=== PATIENT | male | born 1950 | race Caucasian/White ===

== ENCOUNTER 2019-06-04 10:45 | Inpatient (IN) | payer MEDICARE, OTHER ==
[2019-06-04] MEDS ORDERED: Nitroglycerin 2% Ointment 1 INCH/1 GM Packet ONE (11:19)
[2019-06-04 11:29] LABS: #Basophils 0.1 thou/uL (0.0-0.2); #Eosinphils 0.1 thou/uL (0.0-0.7); #Monocytes 0.5 thou/uL (0.11-0.59); #Neutrophils 6.7 thou/uL (1.40-6.50); %Basophils 0.8 % (0.0-1.0); %Eosinophils 0.6 % (0.0-10.0); %Monocytes 5.6 % (0.0-10.0); Hemoglobin 15.4 g/dL (14.0-18.0); Mean Corpuscular HGB CONC 33.5 g/dL (32.0-36.0); Mean Corpuscular Hemoglobin 30.6 pg (27.0-31.0); Mean Corpuscular Volume 91.4 fL (78.0-98.0); Mean Platelet Volume 11.1 fL (7.4-10.4); Platelet Count 155 thou/uL (130-400); RBC Distribution Width 12.2 % (11.5-14.5); Red Blood Cell (RBC) Count 5.02 mill/uL (4.70-6.10); White Blood Cell (WBC) Count 9.3 thou/uL (4.8-10.8)
--- NOTE | 2019-06-04 11:47 | RAD ---
XR Chest 1 View Portable HISTORY: Shortness of breath COMPARISON: None FINDINGS: There are changes of median sternotomy. The heart size is mildly enlarged.. The lungs are w ell expanded without focal areas of consolidation, pneumothorax or pleural effusions. IMPRESSION: No radiographic evidence of acute cardiopulmonary process.
[2019-06-04 11:55] LABS: ALT (SGPT) 36 U/L (8-55); AST (SGOT) 24 U/L (5-34); Albumin 4.2 g/dL (3.4-4.8); Alkaline Phosphatase 52 U/L (40-110); Anion Gap 10 mmol/L (10-20); BUN (Urea Nitrogen) 18 mg/dL (8.4-25.7); Bilirubin, Total 0.8 mg/dL (0.2-1.2); Calc. Creatinine Clearance 0 mL/min (70-130); Calcium 9.3 mg/dL (7.8-10.44); Carbon Dioxide 30 mmol/L (23-31); Chloride 104 mmol/L (98-107); Estimated GFR-MDRD 71; Globulin 2.7 g/dL (2.4-3.5); Glucose 146 mg/dL (80-115); Potassium 4.4 mmol/L (3.5-5.1); Protein, Total 6.9 g/dL (5.8-8.1); Sodium 140 mmol/L (136-145)
[2019-06-04 12:13] LABS: CKMB 3.2 ng/mL (0-6.6)
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
[2019-06-04 14:59] LABS: Troponin I 0.068 ng/mL (< 0.028)
[2019-06-04] MEDS ORDERED: Ondansetron ODT 4 MG TAB PO PRN (15:31)
[2019-06-04] MEDS ORDERED: Acetaminophen 325 MG TAB PO PRN (15:31)
--- NOTE | 2019-06-04 15:49 | CT ---
CT Brain WO Con: 06/04/2019 2:32 PM CLINICAL HISTORY: Hypertension and blurry vision. IMAGING TECHNIQUE: Multiple CT images were obtained of the brain without IV contrast. COMPARISON: None. FINDINGS: Brain: No acute infarct or hemorrhage is evident. No midline shift. Ventricles: Normal. No hydrocephalus.. Skull: No acute fracture. 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 Visualized Paranasal sinuses: Clear.. Mastoid air cells:Clear. Extracranial soft tissues:Normal. IMPRESSION: No acute intracranial abnormality.
[2019-06-04 15:51] VITALS: BMI 33.9
[2019-06-04 15:56] LABS: Cardiac Risk 4.9 (Less than 4.5)
[2019-06-04] MEDS ORDERED: Amlodipine 10 MG TAB PO SCH (17:00)
[2019-06-04] MEDS ORDERED: Hydrochlorothiazide 25 MG TAB PO SCH (17:00)
--- NOTE | 2019-06-04 17:20 | CON ---
DATE OF CONSULTATION: REASON FOR CONSULTATION: Hypertensive urgency. HISTORY OF PRESENT ILLNESS: Mr. Friend is a 68-year-old gentleman who initially saw Dr. Jose Armando Anders 10 years ago. He underwent a 4-vessel bypass at [place] [facility]. He has not been seen by Cardiology since. He does follow up with primary care services manager at [facility] on a routine basis, but states he has not been seen by care services manager. He states over the last month, he stopped all his medications. Reason for stopping his medications was "wasn't smart." No chest pain, pressure noted. He does have a left bundle-branch block that appears to be a new finding, although his last EKG at [place] was in 2007. His main complaint was shortness of breath. No chest pain or pressure noted. His initial blood pressure was 213/113. He denies nausea, vomiting, or associated symptoms. He is currently resting comfortably with much less shortness of breath after blood pressure is diminished. Please see Dr. Negrete's full consultation for details. PHYSICAL EXAMINATION: GENERAL: Patient is a pleasant male who is in no acute distress. The patient appears their stated age. VITAL SIGNS: Blood pressure 191/92, pulse 61, temperature 98.4. NEUROLOGIC: The patient is alert and oriented x3 with no focal neurologic deficits. HEENT: Sclerae without icterus. Mouth has moist mucous membranes with normal pallor. NECK: No JVD. Carotid upstroke brisk. No bruits bilaterally. LUNGS: Clear to auscultation with unlabored respirations. BACK: No scoliosis or kyphosis. CARDIAC: Regular rate and rhythm with normal S1 and S2. No S3 or S4 noted. No significant rubs, murmurs, thrills, or gallops noted throughout the precordium. PMI is not displaced. There is no parasternal heave. ABDOMEN: Soft, nontender, nondistended. No peritoneal signs present. No hepatosplenomegaly. No abnormal striae. EXTREMITIES: 2+ femoral and 2+ dorsalis pedis pulses. No cyanosis, clubbing, or edema. SKIN: No gross abnormalities. PERTINENT LABORATORY DATA: Hemoglobin 15.4. Creatinine 1.04, peak troponin 0.06. BNP of 616, platelet count 155. IMPRESSION: 1. Hypertensive urgency. 2. Coronary artery disease. 3. Status post bypass surgery. 4. Left bundle branch block. RECOMMENDATIONS: Mr. Friend's current symptoms likely related to hypertensive urgency. At this point, we will reinstitute lisinopril in addition to Norvasc. May also benefit from low-dose diuretics such as hydrochlorothiazide. I would recommend an echo with Doppler to assess LVEF. If his blood pressure stabilizes and LVEF is normal, we then recommend continued outpatient followup. Job ID: [id number]
[2019-06-04 17:21] LABS: Hemoglobin A1c 6.8 % (4.0-6.0)
[2019-06-04] MEDS ORDERED: hydrALAZINE 20 MG/ML VIAL SLOW IVP PRN (17:41)
[2019-06-04 17:42] LABS: Troponin I 0.041 ng/mL (< 0.028)
[2019-06-04] MEDS ORDERED: Nitroglycerin 0.4 MG TAB (25 Tab Bottle) SL PRN (18:48)
[2019-06-04] MEDS ORDERED: Nitroglycerin 2% Ointment 1 INCH/1 GM Packet TOP PRN (18:48)
[2019-06-04] MEDS: metFORMIN XR 500 MG TAB PO SCH (20:22)
[2019-06-04] MEDS: Atorvastatin Calcium 40 MG TAB PO SCH (20:22)
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
[2019-06-05 05:36] LABS: #Basophils 0.1 thou/uL (0.0-0.2); #Eosinphils 0.2 thou/uL (0.0-0.7); #Lymphocytes 2.6 thou/uL (1.20-3.40); #Monocytes 0.5 thou/uL (0.11-0.59); #Neutrophils 5.5 thou/uL (1.40-6.50); %Basophils 0.6 % (0.0-1.0); %Eosinophils 1.8 % (0.0-10.0); %Lymphocytes 29.4 % (21.0-51.0); %Monocytes 5.9 % (0.0-10.0); %Neutrophils 62.2 % (42.0-75.0); Hemoglobin 14.6 g/dL (14.0-18.0); Mean Corpuscular HGB CONC 33.6 g/dL (32.0-36.0); Mean Corpuscular Hemoglobin 30.8 pg (27.0-31.0); Mean Corpuscular Volume 91.5 fL (78.0-98.0); Mean Platelet Volume 10.8 fL (7.4-10.4); Platelet Count 137 thou/uL (130-400); RBC Distribution Width 12.1 % (11.5-14.5); Red Blood Cell (RBC) Count 4.73 mill/uL (4.70-6.10); White Blood Cell (WBC) Count 8.8 thou/uL (4.8-10.8)
[2019-06-05 05:56] LABS: Anion Gap 11 mmol/L (10-20); BUN (Urea Nitrogen) 14 mg/dL (8.4-25.7); Calc. Creatinine Clearance 123 mL/min (70-130); Calcium 9.1 mg/dL (7.8-10.44); Carbon Dioxide 28 mmol/L (23-31); Chloride 101 mmol/L (98-107); Estimated GFR-MDRD 82; Glucose 125 mg/dL (80-115); Sodium 136 mmol/L (136-145)
--- NOTE | 2019-06-05 06:42 | PDOC.FM ---
- Subjective Subjective: Pt's respiratory symptoms have improved. He is only dyspneic with ambulation. His vision changes are unchanged. He denies motor, sensory changes. - Objective Vital Signs & Weight: Vital Signs (12 hours) Temp Pulse Resp BP Pulse Ox 06/05/19 04:34 97.9 F 58 L 20 172/92 H 94 L 06/04/19 23:35 98 F 55 L 19 138/91 H 96 06/04/19 19:50 97.6 F 58 L 21 H 176/102 H 96 Weight Weight 110.359 kg I&O: 06/03/19 06/04/19 06/05/19 06:59 06:59 06:59 Intake Total 500 Balance 500 Result Diagrams: 06/05/19 04:59 06/05/19 04:59 Phys Exam - Physical Examination Constitutional: NAD HEENT: PERRLA, moist MMs Respiratory: no wheezing, no rales, clear to auscultation bilateral Cardiovascular: RRR, no significant murmur Gastrointestinal: soft, non-tender Musculoskeletal: no edema, pulses present Neurological: non-focal, normal sensation, moves all 4 limbs L eye blurry vision worse in bottom hemisphere Dx/Plan (1) LBBB (left bundle branch block) Code(s): I44.7 - LEFT BUNDLE-BRANCH BLOCK, UNSPECIFIED Status: Acute (2) Hypertensive urgency Code(s): I16.0 - HYPERTENSIVE URGENCY Status: Acute (3) HTN (hypertension) Code(s): I10 - ESSENTIAL (PRIMARY) HYPERTENSION Status: Acute (4) DM (diabetes mellitus) Code(s): E11.9 - TYPE 2 DIABETES MELLITUS WITHOUT COMPLICATIONS Status: Acute (5) Hyperlipemia Code(s): E78.5 - HYPERLIPIDEMIA, UNSPECIFIED Status: Acute - Plan Plan: Pt is a 68 yo male with PMH significant for CAD, CABG 11 yrs ago, HTN, DM II, HLD who presents with LBBB w/o a comparison EKG, new onset blurry vision of L eye. # LBBB # Hx of CAD s/p CABG LBBB on EKG. Unsure if new bc no comparison. Pt has hx of CABG w/o cardiology follow up. He stopped taking his medication 1 month ago. Pt's does not appear fluid overloaded on exam but does have dyspnea, tachypnea, +- orthopnea. With PMH pt possibly has diastolic/systolic dysfunction. BNP elevated, trop indeterminate x 2, CXR mildly enlarged heart. - restart statin therapy, HCTZ, lisinopril, amlodipine; held metoprolol for possible stress test. - Cardiology consulted; appreciate recs. Ordered echocardiogram and if changes on echo will possibly take for stress test. - trend trop x 3 # New Onset Visual Field Changes/Disturbance Pt complains of blurry vision in L eye occurring with onset of dyspnea, tachypnea. Possibly pt has suffered a CVA. Pt's MAP reduced by 20% with nitro paste. Continued home meds to preserve heart function as pt's visual field deficits are not reversible at this time. - CT Head negative - MRI pending # DM MII - a1c 6.8 - continue home metformin # HLD - Elevated LDL - started statin therapy # HTN - medications as above Fluids: none Diet: Heart Healthy VTE: Lovenox Dispo: > 2 midnight stays Addendum - Attending - Attending Attestation Date/Time: 06/05/19 5992 I personally evaluated the patient and discussed the management with Dr. Zacarias. I agree with the History, Examination, Assessment and Plan documented above with any addition or exceptions noted below.
--- NOTE | 2019-06-05 08:24 | MRI ---
MRI BRAIN WITHOUT CONTRAST: HISTORY: Blurry vision, hypertension CORRELATION: CT scan from 06/04/2019. FINDINGS: No restricted diffusion is seen. The ventricular size is appropriate and the basilar cisterns are pat ent. No evidence of acute infarct, hemorrhage, midline shift or abnormal extra-axial fluid collections is seen. There is mild mucosal disease in the paranasal sinuses and small amount of fluid in the mastoid air cells. IMPRESSION: No evidence of acute intracranial process.
[2019-06-05] MEDS: Hydrochlorothiazide 25 MG TAB PO SCH (08:32)
[2019-06-05] MEDS: Lisinopril 10 MG TAB PO SCH (08:32)
[2019-06-05] MEDS: Aspirin 325 MG TAB PO SCH (08:32)
[2019-06-05] MEDS: metFORMIN XR 500 MG TAB PO SCH ×2 (08:33→20:33)
[2019-06-05] MEDS: Enoxaparin Sodium 40 MG/0.4 ML SYRINGE SC SCH (08:34)
[2019-06-05] MEDS ORDERED: Hydrochlorothiazide 25 MG TAB PO SCH ×2 (09:00)
[2019-06-05] MEDS ORDERED: Amlodipine 5 MG TAB PO SCH (09:00)
[2019-06-05] MEDS ORDERED: Prevnar 13-Val Conj/PF 0.5 ML SYRINGE IM ONE (09:00)
--- NOTE | 2019-06-05 09:13 | PRG ---
DATE OF SERVICE: 06/05/2019 SUBJECTIVE: Mr. Friend is doing better. His blood pressure improved overnight, but then increased this morning. No current complaints of chest pain, pressure, or other associated symptoms. OBJECTIVE: GENERAL: The patient is a pleasant male, who is in no acute distress. The patient appears their stated age. VITAL SIGNS: Blood pressure 183/98, pulse 64, and respirations 20. NEUROLOGIC: The patient is alert and oriented x3 with no focal neurologic deficits. HEENT: Sclerae without icterus. Mouth has moist mucous membranes with normal pallor. NECK: No JVD. Carotid upstroke brisk. No bruits bilaterally. LUNGS: Clear to auscultation with unlabored respirations. BACK: No scoliosis or kyphosis. CARDIAC: Regular rate and rhythm with normal S1 and S2. No S3 or S4 noted. No significant rubs, murmurs, thrills, or gallops noted throughout the precordium. PMI is not displaced. There is no parasternal heave. ABDOMEN: Soft, nontender, nondistended. No peritoneal signs present. No hepatosplenomegaly. No abnormal striae. EXTREMITIES: 2+ femoral and 2+ dorsalis pedis pulses. No cyanosis, clubbing, or edema. SKIN: No gross abnormalities. PERTINENT LABORATORY DATA: Hemoglobin 14.6. Peak troponin 0.068. BNP of 616. Creatinine 0.92. IMPRESSION: 1. Hypertensive urgency. 2. Coronary artery disease. 3. Status post bypass surgery. RECOMMENDATIONS: 1. Elevated troponin likely related to hypertensive urgency. The patient has no current symptoms of angina. 2. Change hydrochlorothiazide from b.i.d. dosing to q.a.m. dosing. 3. Increase Norvasc to 5 mg p.o. b.i.d. 4. Review echo. 5. When blood pressure is stable, it would be okay from my standpoint to discharge home with close outpatient followup. Job ID: [id number]
[2019-06-05] MEDS: Amlodipine 5 MG TAB PO SCH ×2 (09:35→20:32)
[2019-06-05] MEDS ORDERED: hydrALAZINE 20 MG/ML VIAL SLOW IVP PRN (14:25)
[2019-06-05] MEDS: Carvedilol 3.125 MG TAB PO SCH (18:23)
[2019-06-05] MEDS: Atorvastatin Calcium 40 MG TAB PO SCH (20:33)
[2019-06-06 07:11] LABS: Anion Gap 10 mmol/L (10-20); BUN (Urea Nitrogen) 19 mg/dL (8.4-25.7); Calc. Creatinine Clearance 107 mL/min (70-130); Calcium 9.6 mg/dL (7.8-10.44); Carbon Dioxide 32 mmol/L (23-31); Chloride 102 mmol/L (98-107); Estimated GFR-MDRD 70; Glucose 132 mg/dL (80-115); Potassium 4.2 mmol/L (3.5-5.1); Sodium 140 mmol/L (136-145)
--- NOTE | 2019-06-06 07:55 | PDOC.FM ---
- Subjective Subjective: Pt is doing well w/o complaints. He was seen by cardiology who recommended a stress test today. PO intake held. Symptoms are resolving. - Objective Vital Signs & Weight: Vital Signs (12 hours) Temp Pulse Resp BP BP Pulse Ox 06/06/19 04:40 97.6 F 54 L 18 167/86 H 95 06/05/19 23:55 97.9 F 52 L 16 139/78 96 06/05/19 20:32 55 L 149/78 H 06/05/19 20:09 98.0 F 55 L 16 149/78 H 93 L Weight Weight 110.359 kg I&O: 06/05/19 06/06/19 06/07/19 06:59 06:59 06:59 Intake Total 500 960 Balance 500 960 Result Diagrams: 06/05/19 04:59 06/06/19 06:09 Phys Exam - Physical Examination Constitutional: NAD HEENT: PERRLA, moist MMs Respiratory: no wheezing, clear to auscultation bilateral Cardiovascular: RRR, no significant murmur Gastrointestinal: soft, non-tender Musculoskeletal: no edema, pulses present Psychiatric: normal affect, A&O x 3 Dx/Plan (1) LBBB (left bundle branch block) Code(s): I44.7 - LEFT BUNDLE-BRANCH BLOCK, UNSPECIFIED Status: Acute (2) Hypertensive urgency Code(s): I16.0 - HYPERTENSIVE URGENCY Status: Acute (3) HTN (hypertension) Code(s): I10 - ESSENTIAL (PRIMARY) HYPERTENSION Status: Acute (4) DM (diabetes mellitus) Code(s): E11.9 - TYPE 2 DIABETES MELLITUS WITHOUT COMPLICATIONS Status: Acute (5) Hyperlipemia Code(s): E78.5 - HYPERLIPIDEMIA, UNSPECIFIED Status: Acute - Plan Plan: Pt is a 68 yo male with PMH significant for CAD, CABG 11 yrs ago, HTN, DM II, HLD who presents with LBBB w/o a comparison EKG, new onset blurry vision of L eye. # LBBB # Hx of CAD s/p CABG LBBB on EKG. Unsure if new bc no comparison. Pt has hx of CABG w/o cardiology follow up. He stopped taking his medication 1 month ago. Pt's does not appear fluid overloaded on exam but does have dyspnea, tachypnea, +- orthopnea. With PMH pt possibly has diastolic/systolic dysfunction. BNP elevated, trop indeterminate x 2, CXR mildly enlarged heart. - restart statin therapy, HCTZ, lisinopril, amlodipine; held metoprolol for possible stress test. Cardiology started on carvedilol yesterday. Held this am for stress test. - Cardiology consulted; appreciate recs. Stress test today. - Echo revealed EF 40-45%, Hypokinetic - trend trop x 3 # New Onset Visual Field Changes/Disturbance Pt complains of blurry vision in L eye occurring with onset of dyspnea, tachypnea. Possibly pt has suffered a CVA. Pt's MAP reduced by 20% with nitro paste. Continued home meds to preserve heart function as pt's visual field deficits are not reversible at this time. - CT Head negative - MRI negative # DM MII - a1c 6.8 - continue home metformin # HLD - Elevated LDL - started statin therapy # HTN - medications as above - will need to titrate for optimal control. Addition of carvedilol will hopefully give optimal BP. If not can increase lisinopril, HCTZ Fluids: none Diet: Heart Healthy VTE: Lovenox Dispo: > 2 midnight stays Addendum - Attending - Attending Attestation Date/Time: 06/06/19 1416 I personally evaluated the patient and discussed the management with Dr. Zacarias /Mickey I agree with the History, Examination, Assessment and Plan documented above with any addition or exceptions noted below. Stress today worthwhile US scan orbits/retinal due persistent visual changes r/u retinal detachment
[2019-06-06] MEDS: Amlodipine 5 MG TAB PO SCH ×2 (12:44→21:38)
[2019-06-06] MEDS: Aspirin 325 MG TAB PO SCH (12:45)
[2019-06-06] MEDS: Enoxaparin Sodium 40 MG/0.4 ML SYRINGE SC SCH (12:45)
[2019-06-06] MEDS: Lisinopril 10 MG TAB PO SCH ×2 (12:45→21:37)
[2019-06-06] MEDS: metFORMIN XR 500 MG TAB PO SCH ×2 (12:45→21:37)
[2019-06-06] MEDS: Hydrochlorothiazide 25 MG TAB PO SCH (12:45)
[2019-06-06] MEDS ORDERED: Regadenoson 0.4 MG/5 ML SYRINGE ONE (12:47)
--- NOTE | 2019-06-06 13:39 | NM ---
NM Cardiac Stress W EF WF HISTORY: Chest pain shortness of breath. COMPARISON: None. FINDINGS: Examination is performed using 33 mCi 90 9M technetium sestamibi for the stress and 10 mCi for the resting images. This shows a dilated ventricular chamber. No signs of ischemia or scar. Wall motion: There is a severe global hypokinesis present. Left ventricular ejection fraction: The calculated left ventricular ejection fraction was 31%. IMPRESSION: No evidence of ischemia. Diminished left ventricular ejection fraction of 31%.
--- NOTE | 2019-06-06 15:34 | PRG ---
DATE OF SERVICE: 06/06/2019 SUBJECTIVE: Mr. Friend is doing well. No chest pain or pressure. OBJECTIVE: VITAL SIGNS: Blood pressure still high at 180/100, pulse 58, but sometimes he is in low 50s. LUNGS: Clear. CARDIAC: Normal S1. Normal S2. ABDOMEN: Soft and nontender. IMAGING STUDIES: On the monitor, he has Tachycardia-bradycardia syndrome with heart rates in the 40s at times. Other times, he is having SVT. EKG reveals left bundle-branch block. Stress test indicated ejection fraction of 31%. On the echo, it looked in the 40% to 45% range. ASSESSMENT: 1. Previous bypass surgery. 2. Depressed left ventricular function. 3. Left bundle-branch block. 4. Tachycardia-bradycardia syndrome. 5. Hypertension. PLAN: 1. Increase MUMTAZ inhibitors. 2. Can go higher in the beta blockers at least for now. 3. Consideration for cardiac catheterization to evaluate the ejection fraction with left ventriculogram. If the ejection fraction is below 35%, may need a LifeVest with over 35%, could even consider biventricular pacing followed by increased beta blockers. Dr. Ryan to resume care on Saturday. Job ID: [id number]
[2019-06-06] MEDS: Atorvastatin Calcium 40 MG TAB PO SCH (21:37)
--- NOTE | 2019-06-07 06:13 | PDOC.FM ---
- Subjective Subjective: Pt is doing well. He has no symptoms today. Denies dyspnea at rest/ambulation, chest pain. - Objective Vital Signs & Weight: Vital Signs (12 hours) Temp Pulse Resp BP Pulse Ox 06/07/19 04:40 97.8 F 54 L 20 155/85 H 95 06/07/19 01:30 97.8 F 54 L 20 155/85 H 95 06/07/19 00:05 97.8 F 56 L 20 165/86 H 97 06/06/19 21:38 49 L 176/90 H 06/06/19 21:37 176/90 H Weight Weight 110.359 kg I&O: 06/05/19 06/06/19 06/07/19 06:59 06:59 06:59 Intake Total 500 960 960 Output Total 450 Balance 500 960 510 Result Diagrams: 06/05/19 04:59 06/06/19 06:09 Phys Exam - Physical Examination Constitutional: NAD Respiratory: no wheezing, clear to auscultation bilateral Cardiovascular: RRR, no significant murmur Gastrointestinal: soft, non-tender Musculoskeletal: no edema Dx/Plan (1) LBBB (left bundle branch block) Code(s): I44.7 - LEFT BUNDLE-BRANCH BLOCK, UNSPECIFIED Status: Acute (2) Hypertensive urgency Code(s): I16.0 - HYPERTENSIVE URGENCY Status: Acute (3) HTN (hypertension) Code(s): I10 - ESSENTIAL (PRIMARY) HYPERTENSION Status: Acute (4) DM (diabetes mellitus) Code(s): E11.9 - TYPE 2 DIABETES MELLITUS WITHOUT COMPLICATIONS Status: Acute (5) Hyperlipemia Code(s): E78.5 - HYPERLIPIDEMIA, UNSPECIFIED Status: Acute - Plan Plan: Pt is a 68 yo male with PMH significant for CAD, CABG 11 yrs ago, HTN, DM II, HLD who presents with LBBB w/o a comparison EKG, new onset blurry vision of L eye. # LBBB # Hx of CAD s/p CABG LBBB on EKG. Unsure if new bc no comparison. Pt has hx of CABG w/o cardiology follow up. He stopped taking his medication 1 month ago. Pt's does not appear fluid overloaded on exam but does have dyspnea, tachypnea, +- orthopnea. With PMH pt possibly has diastolic/systolic dysfunction. BNP elevated, trop indeterminate x 2, CXR mildly enlarged heart. - restart statin therapy, HCTZ, lisinopril, amlodipine; held metoprolol for possible stress test. Cardiology started on carvedilol yesterday. Held this am for stress test. - Cardiology consulted; appreciate recs. Echo revealed EF 40-45%, Hypokinetic; stress revealed EF 31%; pt will need cath for further stratification of cardiac disease. Will be performed on Saturday. Lisinopril increased to BID, Beta Juanita restarted. Increase beta juanita if BP needed, HR can tolerate. - trend trop x 3 # New Onset Visual Field Changes/Disturbance Pt complains of blurry vision in L eye occurring with onset of dyspnea, tachypnea. Possibly pt has suffered a CVA. Pt's MAP reduced by 20% with nitro paste. Continued home meds to preserve heart function as pt's visual field deficits are not reversible at this time if secondary to CVA. Defect stable. - CT Head negative - MRI negative - Follow up outpt # DM MII - a1c 6.8 - continue home metformin # HLD - Elevated LDL - started statin therapy # HTN - medications as above - will need to titrate for optimal control. Addition of carvedilol will hopefully give optimal BP. If not can increase lisinopril, HCTZ Fluids: none Diet: Heart Healthy VTE: Lovenox Dispo: > 2 midnight stays Addendum - Attending - Attending Attestation Date/Time: 06/07/19 4719 I personally evaluated the patient and discussed the management with Dr. Zacarias I agree with the History, Examination, Assessment and Plan documented above with any addition or exceptions noted below.
[2019-06-07] MEDS: Amlodipine 5 MG TAB PO SCH ×2 (09:43→20:56)
[2019-06-07] MEDS: Aspirin 325 MG TAB PO SCH (09:43)
[2019-06-07] MEDS: Enoxaparin Sodium 40 MG/0.4 ML SYRINGE SC SCH (09:43)
[2019-06-07] MEDS: Carvedilol 3.125 MG TAB PO SCH ×2 (09:43→17:52)
[2019-06-07] MEDS: Hydrochlorothiazide 25 MG TAB PO SCH (09:44)
[2019-06-07] MEDS: Lisinopril 10 MG TAB PO SCH ×2 (09:44→20:56)
[2019-06-07] MEDS: metFORMIN XR 500 MG TAB PO SCH ×2 (09:44→20:57)
[2019-06-07] MEDS ORDERED: Artificial Tear Sol 15 ML BOT EA EYE PRN (13:19)
[2019-06-07] MEDS: Atorvastatin Calcium 40 MG TAB PO SCH (20:56)
[2019-06-08 05:32] LABS: Anion Gap 12 mmol/L (10-20); BUN (Urea Nitrogen) 19 mg/dL (8.4-25.7); Calc. Creatinine Clearance 108 mL/min (70-130); Calcium 9.7 mg/dL (7.8-10.44); Carbon Dioxide 29 mmol/L (23-31); Cardiac Risk 4.6 (Less than 4.5); Chloride 100 mmol/L (98-107); Cholesterol 144 mg/dl (< 200 Desired); Estimated GFR-MDRD 71; Glucose 128 mg/dL (80-115); HDL Cholesterol 31 mg/dL (>60 Neg Risk); LDL Cholesterol, Calculated 98 mg/dL; Potassium 3.9 mmol/L (3.5-5.1); Sodium 137 mmol/L (136-145); Triglycerides 74 mg/dL (Less than 150)
--- NOTE | 2019-06-08 06:06 | PDOC.FM ---
- Subjective Subjective: Pt is doing well today. He denies dyspnea at rest or ambulation, chest pain. He vision has no changed. Seen by optho but no is not in system. - Objective Vital Signs & Weight: Vital Signs (12 hours) Temp Pulse Resp BP Pulse Ox 06/08/19 04:00 97.4 F L 62 16 158/79 H 98 06/08/19 00:00 97.6 F 50 L 16 152/82 H 95 06/07/19 20:00 97.7 F 54 L 16 146/83 H 95 Weight Weight 110.359 kg I&O: 06/06/19 06/07/19 06/08/19 06:59 06:59 06:59 Intake Total 687 916 8585 Output Total 450 900 Balance 960 510 470 Result Diagrams: 06/05/19 04:59 06/08/19 04:48 Phys Exam - Physical Examination Constitutional: NAD Respiratory: no wheezing, clear to auscultation bilateral Cardiovascular: RRR, no significant murmur Gastrointestinal: soft, non-tender Musculoskeletal: no edema, pulses present Psychiatric: normal affect, A&O x 3 Dx/Plan (1) LBBB (left bundle branch block) Code(s): I44.7 - LEFT BUNDLE-BRANCH BLOCK, UNSPECIFIED Status: Acute (2) Hypertensive urgency Code(s): I16.0 - HYPERTENSIVE URGENCY Status: Acute (3) HTN (hypertension) Code(s): I10 - ESSENTIAL (PRIMARY) HYPERTENSION Status: Acute (4) DM (diabetes mellitus) Code(s): E11.9 - TYPE 2 DIABETES MELLITUS WITHOUT COMPLICATIONS Status: Acute (5) Hyperlipemia Code(s): E78.5 - HYPERLIPIDEMIA, UNSPECIFIED Status: Acute (6) Coronary artery disease Code(s): I25.10 - ATHSCL HEART DISEASE OF [place] CORONARY ARTERY W/O ANG PCTRS Status: Acute (7) Heart failure Code(s): I50.9 - HEART FAILURE, UNSPECIFIED Status: Acute - Plan Plan: Pt is a 68 yo male with PMH significant for CAD, CABG 11 yrs ago, HTN, DM II, HLD who presents with LBBB w/o a comparison EKG, new onset blurry vision of L eye. Pending cath today, 06/08. # LBBB # Hx of CAD s/p CABG # Heart Failure, EF 40-45% on echo and 31% on negative stress test. # Bradycardia LBBB on EKG. Unsure if new bc no comparison. Pt has hx of CABG w/o cardiology follow up. He stopped taking his medication 1 month ago. Pt's does not appear fluid overloaded on exam but does have dyspnea, tachypnea, +- orthopnea. With PMH pt possibly has diastolic/systolic dysfunction. BNP elevated, trop indeterminate x 3, CXR mildly enlarged heart. Echo revealed EF 40-45%, Hypokinetic; stress revealed EF 31%; pt will need cath for further stratification of cardiac disease. Will be performed on Saturday. Lisinopril increased to BID, Beta Juanita restarted. - Continue statin therapy, HCTZ, lisinopril, amlodipine, carvedilol; home metoprolol stopped - Cardiology consulted; appreciate recs. # New Onset Visual Field Changes/Disturbance Pt complains of blurry vision in L eye occurring with onset of dyspnea, tachypnea. Possibly pt has suffered a CVA. Pt's MAP reduced by 20% with nitro paste. Continued home meds to preserve heart function as pt's visual field deficits are not reversible at this time if secondary to CVA. Defect stable. - CT Head negative - MRI negative - Optho consulted; appreciate recs # DM MII - a1c 6.8 - continue home metformin # HLD - Elevated LDL - started statin therapy # HTN - medications as above - will need to titrate for optimal control. Consider increase if HCTZ, Lisinopril Fluids: none Diet: Heart Healthy VTE: Lovenox Dispo: > 2 midnight stays
[2019-06-08] MEDS ORDERED: Heparin (Artline) 1,000 ML ONE (07:36)
[2019-06-08] MEDS ORDERED: Lidocaine 1% (PF) 30 ML VIAL ONE (07:36)
[2019-06-08] MEDS ORDERED: Fentanyl 100 MCG/2 ML VIAL ONE (08:10)
[2019-06-08] MEDS ORDERED: Midazolam HCl 2 mg/2 ml Vial ONE (08:10)
[2019-06-08] MEDS ORDERED: Heparin 10,000 UNITS/1 ML VIAL ONE (08:41)
--- NOTE | 2019-06-08 08:46 | PRG ---
DATE OF SERVICE: 06/08/2019 The patient did undergo a noninvasive stress study over the weekend. LVEF 31%. No ischemia present. Given his new findings of low LVEF, we decided with proceed with coronary angiography versus medical therapy. I have discussed the risks and benefits of both. We decided to proceed with coronary angiography. I discussed the procedure in full detail with Mr. Friend. The risks of the procedure were also discussed. The risks of the procedure include but are not limited to the following: , stroke, LA, need for emergency surgery, loss of limb, bleeding, and infection, as well as a reaction to the dye causing kidney failure and needing long-term dialysis. I also discussed the risks of PCI to include all of the above including coronary dissection and perforation in addition to acute stent thrombosis and restenosis. All questions about the procedure were answered. Given the above, the patient agreed to proceed with coronary angiography and possible PCI. All questions were answered. We also discussed drug coated with nondrug-coated stent placement. There were no contraindications. We will proceed if needed. Further recommendations, pending the above. Job ID: [id number]
[2019-06-08] MEDS ORDERED: Aspirin Chewable 81 MG TAB ONE (08:51)
[2019-06-08] MEDS ORDERED: Clopidogrel Bisulfate 300 MG TAB ONE (08:51)
[2019-06-08] MEDS ORDERED: Lisinopril 20 MG TAB PO SCH (09:00)
[2019-06-08] MEDS ORDERED: Heparin (Artline) 500 ML ONE (09:02)
[2019-06-08] MEDS ORDERED: Sodium Chloride 0.9% 1,000 ML IV SCH (09:15)
[2019-06-08] MEDS ORDERED: Iopamidol 370 76% 100 ML VIAL ONE (10:54)
[2019-06-08] MEDS: metFORMIN XR 500 MG TAB PO SCH (11:36)
[2019-06-08] MEDS: Hydrochlorothiazide 25 MG TAB PO SCH (14:03)
[2019-06-08] MEDS: Amlodipine 5 MG TAB PO SCH (14:03)
[2019-06-08] MEDS: Carvedilol 3.125 MG TAB PO SCH ×2 (14:03→18:13)
[2019-06-08] MEDS: Aspirin 325 MG TAB PO SCH (14:09)
--- NOTE | 2019-06-08 14:56 | PRG ---
DATE OF SERVICE: 06/08/2019 ADDENDUM: Please add this as an addendum to the note of Dr. Je Zacarias. Mr. Friend just returned from cardiac cath where a stent was placed. He is currently in the PCU and will be transferred to his regular floor bed in 1 or 2 hours. He tolerated the procedure well. Job ID: [id number]
[2019-06-08 19:33] VITALS: BP 153/94; TEMP 97.4
[2019-06-09] MEDS ORDERED: Clopidogrel Bisulfate 75 MG TAB PO SCH (09:00)
[2019-06-09] MEDS ORDERED: Aspirin Chewable 81 MG TAB PO SCH (09:00)
--- NOTE | 2019-06-09 14:19 | DIS ---
DATE OF ADMISSION: 06/07/2019 DATE OF DISCHARGE: 06/08/2019 DISCHARGE ATTENDING: Isidro Rosas MD. RESIDENT: Je Zacarias DO. ADMITTING ATTENDING: River Combs MD. CONSULTS: 1. Cardiology, Dr. Michael Ryan MD. 2. Ophthalmology, Dr. Storm Navarro. PRIMARY DIAGNOSES: 1. Heart failure with reduced ejection fraction. 2. Coronary artery disease. 3. Left bundle branch block. 4. Hypertension. 5. Hypertensive urgency. SECONDARY DIAGNOSES: 1. Type 2 diabetes. 2. Hyperlipidemia. 3. Coronary artery bypass grafting. DISCHARGE MEDICATIONS: 1. Metformin 1000 mg p.o. b.i.d. 2. Amlodipine 5 mg p.o. b.i.d. 3. Aspirin 81 mg p.o. daily. 4. Atorvastatin 80 mg p.o. at bedtime. 5. Coreg 3.125 mg p.o. b.i.d. 6. Plavix 75 mg p.o. daily. 7. Hydrochlorothiazide 12.5 mg p.o. q.p.m. 8. Nitroglycerin 0.4 mg sublingual q.5 minutes p.r.n. angina. 9. Lisinopril/hydrochlorothiazide 20/12.5 mg tab p.o. q.a.m. DISCONTINUED MEDICATIONS: 1. Metoprolol tartrate 25 mg p.o. daily. 2. Amlodipine 10 mg p.o. daily. HISTORY OF PRESENT ILLNESS AND HOSPITAL COURSE: Preethi Friend is a 68-year-old male with past medical history significant for coronary artery disease, CABG 11 years ago, hypertension, type 2 diabetes, hyperlipidemia, who presented with a left bundle branch block on the EKG. We do not have a comparison EKG. The patient had come in with a few day history of shortness of breath at rest and ambulation. He had stopped taking his medications one month ago, which included statin therapy, diabetic therapy, hypertensive therapy. When he came in, his blood pressures were markedly elevated. Of note, he did complain of left blurry vision that started the same time as his shortness of breath. MRI and CT Scan revealed no acute infarction. His troponins were in the indeterminate range. Chest x-ray did reveal a mildly enlarged heart. His echo revealed an EF of 40% to 45% and hypokinesis. Due to this, Cardiology was consulted who performed a stress, which revealed an ejection fraction of 31%. Due to the EF being 31%, Cardiology wanted to further stratify the patient's ejection fraction and ended up performing a cardiac catheterization. During the cardiac cath, the patient did have stent placement. He tolerated the procedure well and due to his low ejection fraction, the patient did require a LifeVest. Patient's medications were optimized for controlling his blood pressure, continued on statin therapy and continued MUMTAZ inhibitor and diabetic therapy. The patient understands he needs to take his medications as prescribed as he has stopped taking his medications a month before. For his new visual field eye defect of the left eye, Ophthalmology did see the patient. They stated that he did have a blood clot causing visual disturbances. Ophthalmology thought that it would resolve on its own. It is recommended that he follow up in the outpatient setting. DISPOSITION: Stable. DISCHARGE INSTRUCTIONS: 1. Location: [facility]. 2. Diet: Heart healthy. 3. Activity: Cardiopulmonary limitations. 4. Followup: a. Follow up with Dr. Ryan in 2 weeks. b. Follow up with Dr. Storm Zacarias, primary care provider within 7 days. c. Follow up with Dr. Storm Navarro as needed. Job ID: [id number] [facility]
--- NOTE | 2019-06-12 00:34 | PQF ---
LUIS GARCIA RICARDO MD [id number] [id number] CLINICAL DOCUMENTATION CLARIFICATION FORM: POST DISCHARGE Addendum to original discharge summary date: ____ Late entry note date: __ DATE:06/12/2019 ATTN: NILESH MCCLAIN Please exercise your independent, professional judgment in responding to the clarification form. Clinical indicators are provided on the bottom of this form for your review Please check appropriate box(s): HEART FAILURE: A. TYPE: [xx ] Systolic / HFrEF [ ] Diastolic / HFpEF [ ] Combined Systolic / Diastolic B. ACUITY [ x ] Acute [ ] Acute on Chronic [ ] Chronic [ ] Other diagnosis [ ] Unable to determine In addition, please specify: Present on Admission (POA): [ x] Yes [ ] No [ ] Unable to determine For continuity of documentation, please document condition throughout progress notes and discharge summary. Thank You. CLINICAL INDICATORS - SIGNS / SYMPTOMS / LABS Dyspnea,Tachypnea-Documented in Family medicine H&P on 06/04 by Je Zacarias. SOB worsened today-Documented in Family medicine H&P on 06/04 by Je Zacarias CXR with mildly enlarged heart-Documented in Family medicine H&P on 06/04 by Je Zacarias HTN emergency with likely new onset HF-Documented in Family medicine H&P on by Je Zacarias New LBB in setting of established CAD with elevated BNP and symptoms of HF- Documented in Family medicine H&P on 06/04 by Je Zacarias Heart failure,EF 40-45% on echo and 31% on negative stress test-Documented in family medicine progress note on 06/08 by Je Zacarias PMH pt possibly has diastolic/systolic dysfunction-Documented in family medicine progress note on 06/08 by Je Zacarias RISKS: PMH-CAD s/p 4v CABG(2006)-Documented in Family medicine H&P on 06/04 by Je Zacarias. HTN emergency -Documented in Family medicine H&P on 06/04 by Bharat Zacarias TREATMENTS: Continue statin therapy,HCTZ,Lisinopril,amlodipine,Carvedilol-Documented in family medicine progress note on 06/08 by Je Zacarias Cardiology consulted-Documented in family medicine progress note on 06/08 by Je Zacarias Stent was placed-Documented in PN on 06/08 by Isidro Quinones [employer] (This form is maintained as a part of the permanent medical record) 2014 [employer], [place]. All Rights Reserved [email or web address] [not provided] MTDD
--- NOTE | 2019-06-22 16:35 | EKG ---
Test Reason : POST STENT Blood Pressure : / mmHG Vent. Rate : 051 BPM Atrial Rate : 051 BPM P-R Int : 208 ms QRS Dur : 166 ms QT Int : 520 ms P-R-T Axes : 058 064 234 degrees QTc Int : 479 ms Sinus bradycardia Left bundle branch block Abnormal ECG Confirmed by MANASA MORALES M.D. ([id number]) on 06/22/2019 4:35:03 PM Referred By: JOHNY Confirmed By:MANASA MORALES M.D.
== END 2019-06-08 19:33 | disposition home or self-care (01) | DRG 246 ==
LOC: ERS 10:45 → 2SW 15:47 → INTOOBSV 15:47 → OBSVTOIN 06-07 13:16
PROVIDERS: ADMIT Emergency Medicine; ATTEND Emergency Medicine
PROC: 4A023N7 Measurement of Cardiac Sampling and Pressure, Left Heart, Percutaneous Approach (ICD-10-PCS; principal; 2019-06-08)
PROC: 027034Z Dilation of Coronary Artery, One Artery with Drug-eluting Intraluminal Device, Percutaneous Approach (ICD-10-PCS; 2019-06-08)
PROC: B2111ZZ Fluoroscopy of Multiple Coronary Arteries using Low Osmolar Contrast (ICD-10-PCS; 2019-06-08)
DX: I16.0 Hypertensive urgency (principal); I50.21 Acute systolic (congestive) heart failure; I44.7 Left bundle-branch block, unspecified; I25.10 Atherosclerotic heart disease of native coronary artery without angina pectoris; E11.9 Type 2 diabetes mellitus without complications; E78.5 Hyperlipidemia, unspecified; I11.0 Hypertensive heart disease with heart failure; H53.9 Unspecified visual disturbance; Z95.1 Presence of aortocoronary bypass graft; Z87.891 Personal history of nicotine dependence
CPT/HCPCS: 36415; 36416; 70450; 70551; 71045; 76942; 78452; 80048; 80053; 80061; 82553; 83036; 83880; 84484; 85025; 85347; 90471; 90670; 92928; 93005; 93010; 93017; 93306; 93455; 93567; 94760; 99152; 99153; A9500; C1725; C1769; C1874; C9600; G0009; J1644; J1650; J2001; J2250; J2785; J3010; Q9967

== ENCOUNTER 2020-02-23 04:30 | Inpatient (IN) | payer MEDICARE, OTHER ==
[2020-02-23 05:05] LABS: #Basophils 0.1 thou/uL (0.0-0.2); #Eosinphils 0.2 thou/uL (0.0-0.7); #Lymphocytes 2.4 thou/uL (1.20-3.40); #Monocytes 0.9 thou/uL (0.11-0.59); #Neutrophils 11.9 thou/uL (1.40-6.50); %Basophils 0.5 % (0.0-1.0); %Eosinophils 1.1 % (0.0-10.0); %Lymphocytes 15.3 % (21.0-51.0); %Monocytes 5.7 % (0.0-10.0); %Neutrophils 77.3 % (42.0-75.0); Hemoglobin 13.8 g/dL (14.0-18.0); Mean Corpuscular HGB CONC 32.9 g/dL (32.0-36.0); Mean Corpuscular Hemoglobin 31.2 pg (27.0-31.0); Mean Platelet Volume 11.2 fL (7.4-10.4); Platelet Count 162 thou/uL (130-400); RBC Distribution Width 12.6 % (11.5-14.5); White Blood Cell (WBC) Count 15.4 thou/uL (4.8-10.8)
[2020-02-23 05:22] LABS: ALT (SGPT) 45 U/L (8-55); AST (SGOT) 29 U/L (5-34); Albumin 4.2 g/dL (3.4-4.8); Alkaline Phosphatase 47 U/L (40-110); Anion Gap 12 mmol/L (10-20); BUN (Urea Nitrogen) 22 mg/dL (8.4-25.7); Bilirubin, Total 0.7 mg/dL (0.2-1.2); CK (CPK) 66 U/L (30-200); Calc. Creatinine Clearance 0 mL/min (70-130); Calcium 9.3 mg/dL (7.8-10.44); Carbon Dioxide 27 mmol/L (23-31); Chloride 104 mmol/L (98-107); Estimated GFR-MDRD 63; Globulin 2.6 g/dL (2.4-3.5); Glucose 175 mg/dL (80-115); Lipase 20 U/L (8-78); Potassium 3.7 mmol/L (3.5-5.1); Protein, Total 6.8 g/dL (5.8-8.1); Sodium 139 mmol/L (136-145)
[2020-02-23] MEDS ORDERED: Digoxin 0.5 MG/2 ML AMP ONE (05:28)
[2020-02-23 05:43] LABS: CKMB 1.5 ng/mL (0-6.6)
[2020-02-23] MEDS ORDERED: Aspirin 325 MG TAB ONE (06:43)
[2020-02-23] MEDS ORDERED: Diltiazem 125 MG/25 ML ONE (06:43)
--- NOTE | 2020-02-23 07:00 | RAD ---
CHEST 1 VIEW: Date: 02/23/2020 INDICATION: Dyspnea. COMPARISON: Prior exam dated 06/04/2019. IMPRESSION: Midline sternotomy changes and mild cardiomegaly is stable. Visualized lungs are clear. Costophrenic angles are excluded. No pneumothorax is evident. POS: BH
[2020-02-23] MEDS ORDERED: Diltiazem 125 MG in Sodium Chloride 0.9% 100 ML IVPB SCH ×3 (08:30→10:00)
[2020-02-23] MEDS ORDERED: Ondansetron PF 4 MG/2 ML Vial IVP PRN (08:43)
[2020-02-23] MEDS ORDERED: Guaifenesin DM 100-10/5 ML UDCUP PO PRN (08:43)
[2020-02-23] MEDS ORDERED: Senokot S 8.6-50 MG TAB PO PRN (08:43)
[2020-02-23] MEDS ORDERED: Acetaminophen 650 MG Suppository PR PRN (08:43)
[2020-02-23] MEDS ORDERED: Ondansetron ODT 4 MG TAB PO PRN (08:43)
[2020-02-23] MEDS ORDERED: Acetaminophen 325 MG TAB PO PRN (08:43)
--- NOTE | 2020-02-23 08:46 | CT ---
CTA CHEST UTILIZING IV CONTRAST PE PROTOCOL 3D REFORMATTED IMAGING: Date: 02/23/2020 HISTORY: Dypnea and progressive shortness of breath FINDINGS: No central or segmental pulmonary embolus is present. No definite subsegmental filling defect is belle sly evident to suggest pulmonary infarction. There is some very mild pleural thickening overlying thi s region and may be related to an area of mild subsegmental atelectasis. No confluent air space opaci ty is noted. There are very mild scattered areas of ground-glass opacity within the central left lowe r lobe as well as within the right lower lobe, right middle lobe, lingula, and upper lobes, which is nonspecific. There is postsurgical change of prior CABG. No pathologically enlarged lymph nodes are e vident. Visualized upper abdomen demonstrates multiple gallstones. There is slight nodularity to both adrenal glands. There is scattered degenerative and osteoarthritic change. IMPRESSION: 1. No definite central or segmental pulmonary embolus demonstrated. 2. Area of subsegmental atelectasis or scarring involving the left lower lobe with overlying pleural thickening. Findings may be related to prior infection or trauma. 3. Scattered areas of patchy ground-glass opacity within both lungs may be related to mild pneumonit is or areas of subsegmental volume loss. 4. Prominent coronary artery and thoracic aortic calcifications with postoperative change of prior C ABG. 5. Cholelithiasis. POS: BH
[2020-02-23 08:52] VITALS: BMI 33.3
[2020-02-23 08:53] LABS: Troponin I 0.033 ng/mL (< 0.028)
[2020-02-23] MEDS ORDERED: Non-Formulary Item 1 EACH (Olmesartan Medoxomil [Benicar] 40 MG) PO SCH (09:00)
[2020-02-23] MEDS ORDERED: HumaLOG 300 UNITS/3 ML VIAL SC PRN (09:10)
[2020-02-23] MEDS ORDERED: Dextrose 50% Abboject 50 ML SYRINGE SLOW IVP PRN (09:10)
[2020-02-23] MEDS ORDERED: Dextrose 5% in Water 1,000 ML IV PRN (09:10)
[2020-02-23] MEDS ORDERED: Iopamidol-370 76% 500 ML 1 ML ONE (09:15)
[2020-02-23] MEDS ORDERED: Losartan 25 MG TAB PO SCH (09:45)
[2020-02-23] MEDS: Chlorthalidone 25 MG TAB PO SCH (09:51)
[2020-02-23] MEDS: Aspirin 325 MG TAB PO SCH (09:51)
[2020-02-23] MEDS: metFORMIN 500 MG TAB PO SCH ×2 (09:52→20:40)
[2020-02-23] MEDS: Enoxaparin Sodium 100 MG/ML SYRINGE SC SCH ×2 (09:52→20:39)
[2020-02-23] MEDS: Famotidine 20 MG TAB PO SCH ×2 (09:52→20:39)
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
[2020-02-23 11:46] LABS: Troponin I 0.032 ng/mL (< 0.028)
[2020-02-23 17:39] LABS: SARS-CoV-2 MS2 Positive; SARS-CoV-2 N Gene Negative; SARS-CoV-2 S Gene Negative; SARS-CoV-2 by NAA Not Detected (NotDetected); SARS-CoV-2 orf1ab Negative
--- NOTE | 2020-02-23 18:06 | CON ---
DATE OF CONSULTATION: REASON FOR CONSULTATION: Atrial fibrillation. HISTORY OF PRESENT ILLNESS: Mr. Friend is a very pleasant 69-year-old gentleman whom I have seen and evaluated in the past. He has a history of CAD, status post stent placement in addition to resolved cardiomyopathy. He states over the last 2 weeks he has had increased heart fluttering and palpitations. He did not seek any medical attention. No chest pain, pressure, or other associated symptoms present. He presented to the emergency room with the above findings. Atrial fibrillation was found. It was felt to be a new finding. PAST MEDICAL HISTORY: 1. CAD, status post stent placement, status post CABG. 2. Hypertension. 3. Hyperlipidemia. 4. Diabetes mellitus. 5. Sleep apnea. 6. Chronic left bundle branch block. HOME MEDICATIONS: 1. Metformin. 2. Atorvastatin. 3. Amlodipine. 4. Benicar. 5. Carvedilol. 6. Plavix. 7. Chlorthalidone. 8. Nitrostat. 9. Aspirin. PAST SURGICAL HISTORY: Bypass x4 and stent placement in 05/2019. SOCIAL HISTORY: Positive for chewing tobacco. Positive for caffeine use. Social alcohol use. REVIEW OF SYSTEMS: A 10-point review of systems was reviewed as above, otherwise negative. PHYSICAL EXAMINATION: GENERAL: Patient is a pleasant male who is in no acute distress. The patient appears their stated age. VITAL SIGNS: Blood pressure 123/80, pulse 89, temperature 98. NEUROLOGIC: The patient is alert and oriented x3 with no focal neurologic deficits. HEENT: Sclerae without icterus. Mouth has moist mucous membranes with normal pallor. NECK: No JVD. Carotid upstroke brisk. No bruits bilaterally. LUNGS: Clear to auscultation with unlabored respirations. BACK: No scoliosis or kyphosis. CARDIAC: Regular rate and rhythm with normal S1 and S2. No S3 or S4 noted. No significant rubs, murmurs, thrills, or gallops noted throughout the precordium. PMI is not displaced. There is no parasternal heave. ABDOMEN: Soft, nontender, nondistended. No peritoneal signs present. No hepatosplenomegaly. No abnormal striae. EXTREMITIES: 2+ femoral and 2+ dorsalis pedis pulses. No cyanosis, clubbing, or edema. SKIN: No gross abnormalities. PERTINENT LABORATORY DATA: Hemoglobin 13.8, hematocrit 41.8. Creatinine 1.16. Troponin 0.04. IMPRESSION: 1. Atrial fibrillation. 2. Coronary artery disease. 3. Status post bypass surgery. 4. Cardiomyopathy with last left ventricular ejection fraction 40% to 45%. RECOMMENDATIONS: 1. Add diltiazem for rate control. 2. Add digoxin loading of 1 mg, then 0.125 mg p.o. q.a.m. 3. Repeat echo. 4. Recommend rate control for now and consider cardioversion as an outpatient if needed. If not able to rate control while in the hospital, we will then consider cardioversion. Job ID: [id number]
[2020-02-23] MEDS: Digoxin 0.25 MG TAB PO SCH ×2 (18:26→22:51)
[2020-02-23] MEDS: Atorvastatin Calcium 40 MG TAB PO SCH (20:40)
[2020-02-23] MEDS: Clopidogrel Bisulfate 75 MG TAB PO SCH (20:40)
[2020-02-23] MEDS ORDERED: Amlodipine 10 MG TAB PO SCH (21:00)
[2020-02-24 04:25] LABS: #Basophils 0.1 thou/uL (0.0-0.2); #Eosinphils 0.1 thou/uL (0.0-0.7); #Lymphocytes 1.9 thou/uL (1.20-3.40); #Monocytes 0.7 thou/uL (0.11-0.59); #Neutrophils 9.9 thou/uL (1.40-6.50); %Basophils 0.5 % (0.0-1.0); %Eosinophils 0.7 % (0.0-10.0); %Monocytes 5.7 % (0.0-10.0); %Neutrophils 78.2 % (42.0-75.0); Hemoglobin 12.7 g/dL (14.0-18.0); Mean Corpuscular Hemoglobin 31.3 pg (27.0-31.0); Mean Corpuscular Volume 94.8 fL (78.0-98.0); Mean Platelet Volume 10.8 fL (7.4-10.4); Platelet Count 135 thou/uL (130-400); RBC Distribution Width 12.4 % (11.5-14.5); Red Blood Cell (RBC) Count 4.07 mill/uL (4.70-6.10); White Blood Cell (WBC) Count 12.7 thou/uL (4.8-10.8)
[2020-02-24 04:37] LABS: Anion Gap 14 mmol/L (10-20); BUN (Urea Nitrogen) 13 mg/dL (8.4-25.7); Calc. Creatinine Clearance 141 mL/min (70-130); Calcium 8.9 mg/dL (7.8-10.44); Carbon Dioxide 22 mmol/L (23-31); Chloride 103 mmol/L (98-107); Estimated GFR-MDRD Greater than 90; Glucose 137 mg/dL (80-115); Potassium 3.3 mmol/L (3.5-5.1); Sodium 136 mmol/L (136-145)
[2020-02-24] MEDS: Digoxin 0.25 MG TAB PO SCH ×2 (04:37→11:12)
[2020-02-24] MEDS ORDERED: Carvedilol 3.125 MG TAB PO SCH (08:15)
--- NOTE | 2020-02-24 08:17 | PDOC.HOSPP ---
- Subjective Encounter Date: 02/24/20 Encounter Time: 10:40 Subjective: Patient with some nausea and SOB right after taking the diltiazem po since yesterday. No symptoms with the IV drip. Heart rate was a little up this AM, now well controlled once restarted home Carvedilol. No chest pain or palpitations. - Objective Vital Signs & Weight: Vital Signs (12 hours) Temp Pulse Resp BP Pulse Ox 02/24/20 07:24 97.7 F 105 H 15 151/96 H 94 L 02/24/20 06:02 99 150/93 H 02/24/20 04:37 117 H 02/24/20 03:30 98.1 F 93 18 99/65 95 02/23/20 22:51 106 H Weight Weight 239 lb I&O: 02/23/20 02/24/20 02/25/20 06:59 06:59 06:59 Intake Total 890 Output Total 620 Balance 270 Result Diagrams: 02/24/20 03:59 02/24/20 03:59 Additional Labs: Accuchecks 02/24/20 02/23/20 02/23/20 06:07 20:22 16:30 POC Glucose 133 H 142 H 138 H 02/23/20 10:56 POC Glucose 140 H Hospitalist ROS - Review of Systems Constitutional: denies: fever, chills Respiratory: denies: cough, shortness of breath Cardiovascular: denies: chest pain, palpitations, orthopnea Gastrointestinal: denies: nausea, vomiting, abdominal pain - Medication Medications: Active Medications Generic Name Dose Route Start Last Admin Trade Name Freq PRN Reason Stop Dose Admin Amlodipine Besylate 10 mg 02/23/20 21:00 02/23/20 20:39 Norvasc PO 10 mg HS JAG Administration Aspirin 325 mg 02/23/20 09:00 02/23/20 09:51 Aspirin PO 325 mg DAILY JAG Administration Atorvastatin Calcium 80 mg 02/23/20 21:00 02/23/20 20:40 Lipitor PO 80 mg HS JAG Administration Chlorthalidone 12.5 mg 02/23/20 09:00 02/23/20 09:51 Hygroton PO 12.5 mg DAILY JAG Administration Clopidogrel Bisulfate 75 mg 02/23/20 21:00 02/23/20 20:40 Plavix PO 75 mg HS JAG Administration Digoxin 0.25 mg 02/23/20 17:00 02/24/20 04:37 Lanoxin PO 02/24/20 11:01 0.25 mg Q6H JAG Administration Diltiazem HCl 90 mg 02/24/20 06:00 02/24/20 06:04 Cardizem PO 90 mg Q8HR JAG Administration Enoxaparin Sodium 100 mg 02/23/20 09:00 02/23/20 20:39 Lovenox SC 100 mg 0900,2100 JAG Administration Famotidine 20 mg 02/23/20 09:00 02/23/20 20:39 Pepcid PO 20 mg BID JAG Administration Diltiazem HCl 125 mg/ Sodium 125 mls @ 7.5 mls/hr 02/23/20 10:00 02/23/20 21: 21 Chloride IVPB 125 mls INF JAG Administration Protocol 7.5 MG/HR Metformin HCl 1,000 mg 02/23/20 09:00 02/23/20 20:40 Glucophage PO 1,000 mg BID JAG Administration Senna/Docusate Sodium 2 tab 02/23/20 08:43 02/23/20 20:39 Senokot S PO 2 tab BID PRN Administration Constipation - Exam General Appearance: NAD, awake alert ENT: moist mucosa Heart: no murmur, no gallops, no rubs, irregular Respiratory: CTAB, no wheezes, no rales, no ronchi Gastrointestinal: soft, non-tender, non-distended, normal bowel sounds Extremities: no edema Psychiatric: normal affect, normal behavior, A&O x 3 Hosp A/P (1) Atrial fibrillation with RVR Code(s): I48.91 - UNSPECIFIED ATRIAL FIBRILLATION Status: Acute (2) Systolic congestive heart failure Code(s): I50.20 - UNSPECIFIED SYSTOLIC (CONGESTIVE) HEART FAILURE Status: Chronic Qualifiers: Heart failure chronicity: chronic Qualified Code(s): I50.22 - Chronic systolic (congestive) heart failure (3) Coronary artery disease Code(s): I25.10 - ATHSCL HEART DISEASE OF [place] CORONARY ARTERY W/O ANG PCTRS Status: Chronic (4) LBBB (left bundle branch block) Code(s): I44.7 - LEFT BUNDLE-BRANCH BLOCK, UNSPECIFIED Status: Chronic (5) Hx of CABG Status: Chronic (6) DM (diabetes mellitus) Code(s): E11.9 - TYPE 2 DIABETES MELLITUS WITHOUT COMPLICATIONS Status: Chronic Qualifiers: Diabetes mellitus type: type 2 (7) HTN (hypertension) Code(s): I10 - ESSENTIAL (PRIMARY) HYPERTENSION Status: Chronic Qualifiers: Hypertension type: essential hypertension Qualified Code(s): I10 - Essential (primary) hypertension (8) Hyperlipemia Code(s): E78.5 - HYPERLIPIDEMIA, UNSPECIFIED Status: Chronic - Plan Rate controlled on digoxin and diltiazem drip yesterday, went back up a little this morning. Dr. Ryan consulted and attempting transition to oral diltiazem and digoxin. He has recommended resuming home Coreg as well. Will discuss switching to different form of diltiazem due to side effects with Dr. Ryan vs. consideration of ablation. On full dose Lovenox. Blood sugars well controlled, on ISS in case spikes DVT proph: Full dose Lovenox. GI proph: Pepcid BID
[2020-02-24] MEDS: metFORMIN 500 MG TAB PO SCH ×2 (08:39→20:29)
[2020-02-24] MEDS: Losartan 25 MG TAB PO SCH (08:39)
[2020-02-24] MEDS: Aspirin 325 MG TAB PO SCH (08:40)
[2020-02-24] MEDS: Chlorthalidone 25 MG TAB PO SCH (08:40)
[2020-02-24] MEDS: Famotidine 20 MG TAB PO SCH ×2 (08:40→20:29)
[2020-02-24] MEDS: Enoxaparin Sodium 100 MG/ML SYRINGE SC SCH ×2 (08:41→20:29)
[2020-02-24] MEDS ORDERED: Diltiazem 125 MG in Sodium Chloride 0.9% 100 ML IVPB SCH (12:40)
[2020-02-24] MEDS ORDERED: Furosemide 40 MG/4 ML VIAL SLOW IVP SCH (12:45)
[2020-02-24] MEDS ORDERED: Potassium Chloride 20 MEQ TAB PO SCH (14:45)
[2020-02-24] MEDS ORDERED: Amiodarone 450 MG in Dextrose 5% in Water 250 ML IVPB SCH (16:15)
[2020-02-24] MEDS: Carvedilol 3.125 MG TAB PO SCH (16:59)
[2020-02-24] MEDS: HumaLOG 300 UNITS/3 ML VIAL SC PRN (17:00)
--- NOTE | 2020-02-24 18:59 | PRG ---
DATE OF SERVICE: 02/24/2020 SUBJECTIVE: Mr. Friend this morning appeared to have crackles noted bilaterally. He did have shortness of breath, although denied any shortness of breath issues. His heart rate remains elevated. He is on Cardizem 7.5 mg per hour. He has been supplemented with p.o. short-acting Cardizem, but states he developed nausea for 30 minutes after each dose. OBJECTIVE: VITAL SIGNS: Blood pressure 131/67, pulse 80, temperature 97.9. LUNGS: Minimal crackles bilaterally. HEART: Irregularly irregular. ABDOMEN: Soft, nontender, nondistended. EXTREMITIES: 1+ pitting edema. PERTINENT LABORATORY DATA: Hemoglobin 12.7, hematocrit 38.6. IMPRESSION: 1. Acute on chronic systolic heart failure. 2. Coronary artery disease. 3. Status post bypass surgery. 4. Atrial fibrillation. RECOMMENDATIONS: 1. We will give one dose of Lasix IV 40 mg x1. 2. Change short-acting Cardizem to long-acting Cardizem due to nausea. 3. Reinstitute Coreg 3.125 one p.o. b.i.d. 4. Review echo. 5. If the patient continues having difficulty with rate control, we would then recommend IV amiodarone followed by p.o. amiodarone. Job ID: [id number]
[2020-02-24] MEDS: Amiodarone 200 MG TAB PO SCH (20:28)
[2020-02-24] MEDS: Atorvastatin Calcium 40 MG TAB PO SCH (20:29)
[2020-02-24] MEDS: Clopidogrel Bisulfate 75 MG TAB PO SCH (20:29)
[2020-02-25 05:12] LABS: Anion Gap 14 mmol/L (10-20); BUN (Urea Nitrogen) 16 mg/dL (8.4-25.7); Calc. Creatinine Clearance 129 mL/min (70-130); Carbon Dioxide 26 mmol/L (23-31); Chloride 101 mmol/L (98-107); Estimated GFR-MDRD 90; Glucose 100 mg/dL (80-115); Potassium 3.6 mmol/L (3.5-5.1); Sodium 137 mmol/L (136-145)
--- NOTE | 2020-02-25 07:34 | PDOC.HOSPP ---
- Subjective Encounter Date: 02/25/20 Encounter Time: 13:00 Subjective: Patient feeling better. No chest pain or shortness of breath. A little discouraged about having to restart the LifeVest. - Objective Vital Signs & Weight: Vital Signs (12 hours) Temp Pulse Resp BP Pulse Ox 02/25/20 07:05 97.5 F L 98 15 123/77 92 L 02/25/20 06:45 93 L 02/25/20 04:04 97.8 F 73 16 109/75 93 L 02/25/20 00:53 97 118/75 02/24/20 20:07 93 L Weight Weight 239 lb I&O: 02/24/20 02/25/20 02/26/20 06:59 06:59 06:59 Intake Total 890 480 Output Total 620 200 Balance 270 280 Result Diagrams: 02/24/20 03:59 02/25/20 03:55 Additional Labs: Accuchecks 02/25/20 02/24/20 02/24/20 05:27 20:38 16:07 POC Glucose 108 113 H 189 H 02/24/20 10:41 POC Glucose 160 H Radiology Reviewed by me: Yes (ECHO with EF 30-35%) Hospitalist ROS - Review of Systems Constitutional: denies: fever, chills Respiratory: denies: cough, shortness of breath Cardiovascular: denies: chest pain, palpitations Gastrointestinal: denies: nausea, vomiting, abdominal pain - Medication Medications: Active Medications Generic Name Dose Route Start Last Admin Trade Name Freq PRN Reason Stop Dose Admin Amiodarone HCl 400 mg 02/24/20 21:00 02/24/20 20:28 Cordarone PO 400 mg BID JAG Administration Aspirin 325 mg 02/23/20 09:00 02/24/20 08:40 Aspirin PO 325 mg DAILY JAG Administration Atorvastatin Calcium 80 mg 02/23/20 21:00 02/24/20 20:29 Lipitor PO 80 mg HS JAG Administration Carvedilol 3.125 mg 02/24/20 17:00 02/24/20 16:59 Coreg PO 3.125 mg BID-WM JAG Administration Chlorthalidone 12.5 mg 02/23/20 09:00 02/24/20 08:40 Hygroton PO 12.5 mg DAILY JAG Administration Clopidogrel Bisulfate 75 mg 02/23/20 21:00 02/24/20 20:29 Plavix PO 75 mg HS JAG Administration Enoxaparin Sodium 100 mg 02/23/20 09:00 02/24/20 20:29 Lovenox SC 100 mg 0900,2100 JAG Administration Famotidine 20 mg 02/23/20 09:00 02/24/20 20:29 Pepcid PO 20 mg BID JAG Administration Diltiazem HCl 125 mg/ Sodium 125 mls @ 5 mls/hr 02/24/20 12:40 02/24/20 14:00 Chloride IVPB 125 mls INF JAG Administration Protocol 5 MG/HR Insulin Human Lispro 0 units 02/23/20 09:10 02/24/20 17:00 Humalog SC 2 unit .MILD SLIDING SCALE PRN Administration Mild Correctional Scale Losartan Potassium 100 mg 02/24/20 09:00 02/24/20 08:39 Cozaar PO 100 mg DAILY JAG Administration Metformin HCl 1,000 mg 02/23/20 09:00 02/24/20 20:29 Glucophage PO 1,000 mg BID JAG Administration Ondansetron HCl 4 mg 02/23/20 08:43 02/24/20 11:02 Zofran IVP 4 mg Q6H PRN Administration Nausea/Vomiting Senna/Docusate Sodium 2 tab 02/23/20 08:43 02/23/20 20:39 Senokot S PO 2 tab BID PRN Administration Constipation - Exam General Appearance: NAD, awake alert ENT: moist mucosa Heart: no murmur, no gallops, no rubs, normal peripheral pulses, irregular Respiratory: CTAB, no wheezes, no rales, no ronchi Gastrointestinal: soft, non-tender, non-distended, normal bowel sounds Psychiatric: normal affect, normal behavior, A&O x 3 Hosp A/P (1) Atrial fibrillation with RVR Code(s): I48.91 - UNSPECIFIED ATRIAL FIBRILLATION Status: Acute (2) Systolic congestive heart failure Code(s): I50.20 - UNSPECIFIED SYSTOLIC (CONGESTIVE) HEART FAILURE Status: Chronic Qualifiers: Heart failure chronicity: chronic Qualified Code(s): I50.22 - Chronic systolic (congestive) heart failure (3) Coronary artery disease Code(s): I25.10 - ATHSCL HEART DISEASE OF [place] CORONARY ARTERY W/O ANG PCTRS Status: Chronic (4) LBBB (left bundle branch block) Code(s): I44.7 - LEFT BUNDLE-BRANCH BLOCK, UNSPECIFIED Status: Chronic (5) Hx of CABG Status: Chronic (6) DM (diabetes mellitus) Code(s): E11.9 - TYPE 2 DIABETES MELLITUS WITHOUT COMPLICATIONS Status: Chronic Qualifiers: Diabetes mellitus type: type 2 (7) HTN (hypertension) Code(s): I10 - ESSENTIAL (PRIMARY) HYPERTENSION Status: Chronic Qualifiers: Hypertension type: essential hypertension Qualified Code(s): I10 - Essential (primary) hypertension (8) Hyperlipemia Code(s): E78.5 - HYPERLIPIDEMIA, UNSPECIFIED Status: Chronic - Plan Heart rate normalized this morning. Switching to long acting form of diltiazem to minimize nausea side effect. Off diltiazem drip. On full dose Lovenox--> switched to Eliquis Leukocytosis improving. No evidence infection. Mild anemia, normal platelets. Blood sugars well controlled. Spoke with Dr. Ryan and he cleared patient for discharge once he gets his LifeVest. Maybe tonight if they are quick, or tomorrow. DVT proph: Full dose Lovenox. GI proph: Pepcid BID
[2020-02-25] MEDS ORDERED: Carvedilol 6.25 MG TAB PO SCH (08:30)
[2020-02-25] MEDS ORDERED: Diltiazem HCl CD 300 mg Capsule PO SCH (09:00)
[2020-02-25] MEDS: metFORMIN 500 MG TAB PO SCH ×2 (09:20→20:22)
[2020-02-25] MEDS: Apixaban 5 MG TAB PO SCH ×2 (09:20→20:21)
[2020-02-25] MEDS: Famotidine 20 MG TAB PO SCH ×2 (09:21→20:21)
[2020-02-25] MEDS: Chlorthalidone 25 MG TAB PO SCH (09:21)
[2020-02-25] MEDS: Amiodarone 200 MG TAB PO SCH (09:21)
[2020-02-25] MEDS: Losartan 25 MG TAB PO SCH (09:22)
[2020-02-25] MEDS: Carvedilol 3.125 MG TAB PO SCH (09:26)
[2020-02-25] MEDS: HumaLOG 300 UNITS/3 ML VIAL SC PRN (11:16)
--- NOTE | 2020-02-25 14:30 | PRG ---
DATE OF SERVICE: 02/25/2020 SUBJECTIVE: Mr. Friend is doing well. His rate is much better controlled. He did receive a dose of Lasix yesterday in addition to Cardizem and increased dose of Coreg. He also received low-dose amiodarone. Heart rate is between 80s and 90s. He feels well. PHYSICAL EXAMINATION: GENERAL: Patient is a pleasant gentleman who is in no acute distress. The patient appears their stated age. VITAL SIGNS: Blood pressure 115/81, pulse 83, and temperature 98. NEUROLOGIC: The patient is alert and oriented x3 with no focal neurologic deficits. HEENT: Sclerae without icterus. Mouth has moist mucous membranes with normal pallor. NECK: No JVD. Carotid upstroke brisk. No bruits bilaterally. LUNGS: Clear to auscultation with unlabored respirations. BACK: No scoliosis or kyphosis. CARDIAC: Irregularly irregular. ABDOMEN: Soft, nontender, nondistended. No peritoneal signs present. No hepatosplenomegaly. No abnormal striae. EXTREMITIES: 2+ femoral and 2+ dorsalis pedis pulses. No cyanosis, clubbing, or edema. SKIN: No gross abnormalities. PERTINENT LABORATORY DATA: Hemoglobin 12.7. Creatinine 0.85. IMPRESSION: 1. Atrial fibrillation with rapid ventricular response. 2. Ischemic cardiomyopathy. 3. Coronary artery disease status post bypass surgery. RECOMMENDATIONS: Several options were discussed with Mr. Friend. I discussed proceeding with JENNIFER and cardioversion. Unfortunately, he will need amiodarone therapy. It takes several weeks to load up with appropriate amiodarone to hold sinus rhythm. There is a chance of failed cardioversion. I also discussed now that he is rate controlled. We could send him home on anticoagulation therapy and amiodarone and proceed with cardioversion as an outpatient. He opted for the latter instead of the former. I would therefore change Lovenox to Eliquis. I increased his Coreg from 3.125 one p.o. b.i.d. to 6.25 b.i.d. We will discontinue Cardizem. We will also add low-dose Lasix 20 mg q.a.m. We will also discontinue aspirin given that he is now on Eliquis and Plavix. Plan is to follow up in 1 week. Job ID: [id number]
[2020-02-25] MEDS: Carvedilol 6.25 MG TAB PO SCH (17:21)
[2020-02-25] MEDS: Atorvastatin Calcium 40 MG TAB PO SCH (20:21)
[2020-02-25] MEDS: Clopidogrel Bisulfate 75 MG TAB PO SCH (20:21)
[2020-02-26] MEDS: Chlorthalidone 25 MG TAB PO SCH (08:10)
[2020-02-26] MEDS: Famotidine 20 MG TAB PO SCH (08:10)
[2020-02-26] MEDS: Losartan 25 MG TAB PO SCH (08:11)
[2020-02-26] MEDS: Carvedilol 6.25 MG TAB PO SCH ×2 (08:11→17:00)
[2020-02-26] MEDS: metFORMIN 500 MG TAB PO SCH (08:11)
[2020-02-26] MEDS: Apixaban 5 MG TAB PO SCH (08:12)
--- NOTE | 2020-02-26 08:22 | PDOC.HOSPP ---
- Subjective Encounter Date: 02/26/20 Encounter Time: 10:10 Subjective: Patient without complaints. Awaiting LifeVest placement later this afternoon. - Objective Vital Signs & Weight: Vital Signs (12 hours) Temp Pulse Resp BP Pulse Ox 02/26/20 07:15 97.4 F L 89 18 131/87 95 02/26/20 04:00 97.8 F 71 16 122/77 95 Weight Weight 238 lb 3.2 oz I&O: 02/25/20 02/26/20 02/27/20 06:59 06:59 06:59 Intake Total 480 360 Output Total 200 Balance 280 360 Result Diagrams: 02/24/20 03:59 02/25/20 03:55 Additional Labs: Accuchecks 02/26/20 02/25/20 02/25/20 05:25 20:01 16:58 POC Glucose 104 108 129 H 02/25/20 11:03 POC Glucose 172 H Hospitalist ROS - Review of Systems Constitutional: denies: fever, chills Respiratory: denies: cough, shortness of breath Cardiovascular: denies: chest pain, palpitations Gastrointestinal: denies: nausea, vomiting, abdominal pain - Medication Medications: Active Medications Generic Name Dose Route Start Last Admin Trade Name Freq PRN Reason Stop Dose Admin Amiodarone HCl 400 mg 02/26/20 09:00 02/26/20 08:11 Cordarone PO 400 mg QAM JAG Administration Apixaban 5 mg 02/25/20 09:00 02/26/20 08:12 Eliquis PO 5 mg BID JAG Administration Atorvastatin Calcium 80 mg 02/23/20 21:00 02/25/20 20:21 Lipitor PO 80 mg HS JAG Administration Carvedilol 6.25 mg 02/25/20 17:00 02/26/20 08:11 Coreg PO 6.25 mg BID-WM JAG Administration Chlorthalidone 12.5 mg 02/23/20 09:00 02/26/20 08:10 [place] PO 12.5 mg DAILY JAG Administration Clopidogrel Bisulfate 75 mg 02/23/20 21:00 02/25/20 20:21 Plavix PO 75 mg HS JAG Administration Diltiazem HCl 180 mg 02/25/20 09:00 02/26/20 08:10 Cardizem Cd PO 180 mg DAILY JAG Administration Famotidine 20 mg 02/23/20 09:00 02/26/20 08:10 Pepcid PO 20 mg BID JAG Administration Furosemide 20 mg 02/26/20 09:00 02/26/20 08:11 Lasix PO 20 mg DAILY JAG Administration Insulin Human Lispro 0 units 02/23/20 09:10 02/25/20 11:16 Humalog SC 2 unit .MILD SLIDING SCALE PRN Administration Mild Correctional Scale Losartan Potassium 100 mg 02/24/20 09:00 02/26/20 08:11 Cozaar PO 100 mg DAILY JAG Administration Metformin HCl 1,000 mg 02/23/20 09:00 02/26/20 08:11 Glucophage PO 1,000 mg BID JAG Administration Ondansetron HCl 4 mg 02/23/20 08:43 02/24/20 11:02 Zofran IVP 4 mg Q6H PRN Administration Nausea/Vomiting Senna/Docusate Sodium 2 tab 02/23/20 08:43 02/23/20 20:39 Senokot S PO 2 tab BID PRN Administration Constipation - Exam General Appearance: NAD, awake alert ENT: moist mucosa Heart: no murmur, no gallops, no rubs, irregular Heart - other findings: no tachycardia Respiratory: CTAB, no wheezes, no rales, no ronchi Gastrointestinal: soft, non-tender, non-distended, normal bowel sounds Psychiatric: normal affect, normal behavior, A&O x 3 Hosp A/P (1) Atrial fibrillation with RVR Code(s): I48.91 - UNSPECIFIED ATRIAL FIBRILLATION Status: Acute (2) Systolic congestive heart failure Code(s): I50.20 - UNSPECIFIED SYSTOLIC (CONGESTIVE) HEART FAILURE Status: Chronic Qualifiers: Heart failure chronicity: chronic Qualified Code(s): I50.22 - Chronic systolic (congestive) heart failure (3) Coronary artery disease Code(s): I25.10 - ATHSCL HEART DISEASE OF [place] CORONARY ARTERY W/O ANG PCTRS Status: Chronic (4) LBBB (left bundle branch block) Code(s): I44.7 - LEFT BUNDLE-BRANCH BLOCK, UNSPECIFIED Status: Chronic (5) Hx of CABG Status: Chronic (6) DM (diabetes mellitus) Code(s): E11.9 - TYPE 2 DIABETES MELLITUS WITHOUT COMPLICATIONS Status: Chronic Qualifiers: Diabetes mellitus type: type 2 (7) HTN (hypertension) Code(s): I10 - ESSENTIAL (PRIMARY) HYPERTENSION Status: Chronic Qualifiers: Hypertension type: essential hypertension Qualified Code(s): I10 - Essential (primary) hypertension (8) Hyperlipemia Code(s): E78.5 - HYPERLIPIDEMIA, UNSPECIFIED Status: Chronic - Plan Heart rate normalized this morning. Switching to long acting form of diltiazem to minimize nausea side effect. Off diltiazem drip. On full dose Lovenox--> switched to Eliquis Leukocytosis improving. No evidence infection. Mild anemia, normal platelets. Blood sugars well controlled. Spoke with Dr. Ryan and he cleared patient for discharge once he gets his LifeVest. Hopefully some time today. DVT proph: Full dose Lovenox. GI proph: Pepcid BID
[2020-02-26] MEDS ORDERED: Furosemide 20 MG TAB PO SCH (09:00)
[2020-02-26] MEDS ORDERED: Amiodarone 200 MG TAB PO SCH (09:00)
[2020-02-26 11:18] VITALS: TEMP 97.6
[2020-02-26 17:00] VITALS: BP 123/77
--- NOTE | 2020-02-27 03:53 | DIS ---
DATE OF ADMISSION: 02/23/2020 DATE OF DISCHARGE: 02/26/2020 PRIMARY CARE PHYSICIAN: Dr. Storm Zacarias. REASON FOR ADMISSION: New onset atrial fibrillation with rapid ventricular rate. DIAGNOSES AT DISCHARGE: 1. Atrial fibrillation with rapid ventricular rate controlled. 2. Systolic congestive heart failure with ejection fraction of 30% to 35%. 3. Coronary artery disease. 4. Left bundle branch block. 5. History of coronary artery bypass grafting. 6. Diabetes mellitus type 2. 7. Hypertension. 8. Hyperlipidemia. PROCEDURES: 1. CTA of the chest with and without contrast showing no definite central or segmental pulmonary embolism. There is an area of subsegmental atelectasis or scarring in the left lower lobe with overlying pleural thickening, also scattered areas of patchy ground-glass opacity within both lungs may be related to mild pneumonitis or areas of subsegmental volume loss and also has cholelithiasis. 2. Echocardiogram showing an ejection fraction of 30% to 35%. Unable to assess diastolic function due to atrial fibrillation. Left atrium severely dilated. CONSULTATIONS: Cardiology, Dr. Rayn. SUMMARY OF HOSPITAL COURSE: This is a 69-year-old white male with a history of previous CABG and a new onset congestive heart failure when he had a stent put in last May. Ejection fraction was depressed in the 30s and he was discharged on LifeVest. Apparently, his EF got improved and eventually, the LifeVest removed. He has been doing well since then until about 2 weeks ago, he started getting shortness of breath, worse with lying down or bending over and has some mild dyspnea on exertion and then on the day before admission, he gets severe shortness of breath and felt palpitations and a little bit of pain in his right lower anterior rib cage. He came into the emergency room, was found to be in atrial fibrillation with rapid ventricular rate. This is a new diagnosis. He was given Cardizem, digoxin, and when his blood pressure came down, he was given a little bit of IV fluids. He was started on a Cardizem drip and eventually titrated up to 7.5 mg/hour and was admitted to the floor. Dr. Ryan was consulted. The patient had echocardiogram and CTA as above. Dr. Ryan did adjust his medications and got his heart rate under good control. He did consider doing a cardioversion; however, prefers to have the patient on amiodarone for a while before doing that. The patient is being discharged home to follow up with Dr. Ryan in the clinic as soon as a LifeVest can be placed due to his low ejection fraction in this hospitalization. DISCHARGE MANAGEMENT: Discharged home. Activity, as tolerated. Diet, healthy heart diet. Equipment supplies, LifeVest. Follow up with Dr. Ryan in 14 days with cardiac rehab as an outpatient with Dr. Storm Zacarias on March 03 at 8:40 a.m. DISCHARGE MEDICATIONS: 1. Eliquis 5 mg twice a day, 60 tablets dispensed. 2. Carvedilol 6.25 mg twice a day, 60 tablets dispensed. 3. Diltiazem CD 180 mg daily, 30 capsules dispensed. 4. Furosemide 20 mg daily, 30 tablets dispensed. 5. Amiodarone 400 mg daily, 20 tablets dispensed. 6. Atorvastatin 80 mg at night. 7. Chlorthalidone 12.5 mg daily. 8. Clopidogrel 75 mg at night. 9. Metformin 1000 mg twice a day. 10. Olmesartan 40 mg daily. Job ID: [id number]
--- NOTE | 2020-02-27 11:53 | EKG ---
Test Reason : TACHYCARDIA,SOB Blood Pressure : / mmHG Vent. Rate : 127 BPM Atrial Rate : 127 BPM P-R Int : 116 ms QRS Dur : 152 ms QT Int : 314 ms P-R-T Axes : 000 013 177 degrees QTc Int : 456 ms Poor data quality, interpretation may be adversely affected Atrial fibrillation with rapid ventricular response Left bundle branch block Abnormal ECG Confirmed by SHANE SWIFT ([id number]), desk editor PATRICIO MARCANO ([id number]) on 02/27/2020 11:53:22 AM Referred By: Confirmed By:SHANE SWIFT
--- NOTE | 2020-02-29 09:26 | PQF ---
CLINICAL DOCUMENTATION CLARIFICATION FORM: Dear : Blake Pino Date / Time: 02/29/2020 09:25 Please exercise your independent, professional judgment in responding to the clarification form. Clinical indicators are provided on the bottom of this form for your review Can you please clarify the respiratory status of the patient? Please check appropriate box(es): [ ] Acute respiratory distress syndrome [ ] Acute respiratory distress only [ ] Other diagnosis [ ] Unable to determine Physician Signature: Date/Time: For continuity of documentation, please document condition throughout progress notes and discharge summary. Thank You. To be completed by CDI/Coding staff for physician review: Present Clinical Indicators - Signs / Symptoms / Labs Results and Location in Medical Record [x] he has some moderate respiratory distress HP 02/22 [x] presents for evaluation of SOB ED Notes 02/22 [x] Minimal crackles bilaterally PN 02/23 [x] 02 sat: 02/22=94 02/23=93 02/24=92 02/25=96 Vital Signs 02/22 Present Risk Factors Results and Location in Medical Record [x] DM ED Notes 02/22 [x] HTN ED Notes 02/22 [x] CAD HP 02/22 [x] HLD HP 02/22 [x] Smoker HP 02/22 [x] 69 years old male HP 02/22 [x] Afib Consult 02/22 [x] CMP Consult 02/22 [x] CHF PN 02/23 Present Treatments Results and Location in Medical Record [x] Chest Xray Collected 02/22 [x] Oxygen via CT Clinical panel respiratory [x] 02 saturation monitoring Collected 02/22 [x] CDS/Healthcare Marketer Signature: Johnkaleigh Ursula West Phone #: [facility] [phone] Date/Time:02/29/20 09:25 Acute Respiratory Failure: ABG pH < 7.35 or > 7.45; Decreased oxygen saturation (<90% room air or < 95% on oxygen); PCO2 > 50 mm Hg; PO2 < 60 mm Hg; Labored or rapid respirations ARDS: Dx Criteria [[place] ARDS]: Respiratory symptoms within one week of a known clinical insult (e.g. shock, infection, surgery, trauma) Bilateral opacities in CXR/Chest CT not due to CHF or fluid This is a permanent part of the Medical Record [facility]
--- NOTE | 2020-02-29 09:29 | PQF ---
CLINICAL DOCUMENTATION CLARIFICATION FORM: Dear : Blake Pino Date / Time: 02/29/2020 09:28 Please exercise your independent, professional judgment in responding to the clarification form. Clinical indicators are provided on the bottom of this form for your review Based on the clinical indicators on admit, can you determine if Acute on chronic systolic CHF was present at the time of admission or developed after admission? Diagnosis: Acute on chronic systolic CHF Present on Admission (POA): [ ] Yes [ ] No [ ] Unable to determine Physician Signature: Date/Time: For continuity of documentation, please document condition throughout progress notes and discharge summary. Thank You. To be completed by CDI/Coding staff for physician review: Present Clinical Indicators - Signs / Symptoms / Labs Results and Location in Medical Record [x] Acute on chronic systolic CHF PN 02/23 [x] Chest Xray: mild cardiomegaly Chest Xray 02/22 [x] presents for evaluation of SOB ED Notes 02/22 [x] Minimal crackles bilaterally PN 02/23 [x] pitting edema PN 02/23 [x] EF 30% to 35% DS 02/25 [x] BNP: 318.5 Labs 02/22 Present Risk Factors Results and Location in Medical Record [x] DM ED Notes 02/22 [x] HTN ED Notes 02/22 [x] CAD HP 02/22 [x] HLD HP 02/22 [x] Smoker HP 02/22 [x] 69 years old male HP 02/22 [x] Afib Consult 02/22 [x] CMP Consult 02/22 Present Treatments Results and Location in Medical Record [x] Chest Xray Collected 02/22 [x] TTE Collected 02/24 [x] Digoxin 0.25 mg oral MAR 02/22 [x] Lasix 40mg IV MAR 02/23 [x] Cardiology Consult Consult 02/22 CDS/[employer] Signature: Johnkaleigh Ursula West Phone #: [phone] Date/Time: 02/29/20 09:28 This is a permanent part of the Medical Record [facility]
== END 2020-02-26 18:02 | disposition home or self-care (01) | DRG 308 ==
LOC: ERS 04:30 → 2NO 08:01
PROVIDERS: ADMIT Internal Medicine; ATTEND Internal Medicine
DX: I48.91 Unspecified atrial fibrillation (principal); I50.23 Acute on chronic systolic (congestive) heart failure; E11.9 Type 2 diabetes mellitus without complications; I11.0 Hypertensive heart disease with heart failure; F17.210 Nicotine dependence, cigarettes, uncomplicated; G47.30 Sleep apnea, unspecified; I44.7 Left bundle-branch block, unspecified; D64.9 Anemia, unspecified; I25.5 Ischemic cardiomyopathy; D72.829 Elevated white blood cell count, unspecified; R06.03 Acute respiratory distress; Z95.1 Presence of aortocoronary bypass graft; Z79.01 Long term (current) use of anticoagulants; Z79.84 Long term (current) use of oral hypoglycemic drugs; Z79.899 Other long term (current) drug therapy; Z79.82 Long term (current) use of aspirin; Z95.5 Presence of coronary angioplasty implant and graft
CPT/HCPCS: 36415; 36416; 71045; 71275; 80048; 80053; 82550; 82553; 83690; 83880; 84484; 85025; 85379; 87324; 87449; 87635; 93005; 93306; 96365; 96375; 96376; 97139; J1160; J1650; J1940; J2405; J3490; Q9967; U0003

== ENCOUNTER 2020-04-07 10:58 | Outpatient (CLI) | payer MEDICARE, OTHER ==
[2020-04-08 12:31] LABS: SARS-CoV-2 MS2 Positive; SARS-CoV-2 N Gene Negative; SARS-CoV-2 S Gene Negative; SARS-CoV-2 by NAA Not Detected (NotDetected); SARS-CoV-2 orf1ab Negative
== END 2020-04-07 10:59 | disposition home or self-care (01) ==
LOC: LABBT 10:58
PROVIDERS: ATTEND Internal Medicine Cardiovascular Disease
DX: Z20.828 Contact with and (suspected) exposure to other viral communicable diseases (principal)
CPT/HCPCS: 87635; U0003

== ENCOUNTER 2020-04-12 09:38 | Day surgery (SDC) | payer MEDICARE, OTHER ==
[2020-04-11 14:59] VITALS: BMI 32.1
[2020-04-12 10:50] LABS: #Eosinphils 0.1 thou/uL (0.0-0.7); #Lymphocytes 1.5 thou/uL (1.20-3.40); #Monocytes 0.6 thou/uL (0.11-0.59); #Neutrophils 3.7 thou/uL (1.40-6.50); %Basophils 0.3 % (0.0-1.0); %Eosinophils 1.4 % (0.0-10.0); %Lymphocytes 25.3 % (21.0-51.0); %Monocytes 9.8 % (0.0-10.0); %Neutrophils 63.1 % (42.0-75.0); Mean Corpuscular HGB CONC 33.7 g/dL (32.0-36.0); Mean Platelet Volume 10.5 fL (7.4-10.4); Platelet Count 145 thou/uL (130-400); RBC Distribution Width 12.5 % (11.5-14.5); Red Blood Cell (RBC) Count 4.37 mill/uL (4.70-6.10); White Blood Cell (WBC) Count 5.9 thou/uL (4.8-10.8)
[2020-04-12] MEDS ORDERED: PROPOFOL 20 ML ONE (11:14)
== END 2020-04-12 11:45 | disposition home or self-care (01) ==
LOC: CCL 09:38
PROVIDERS: ATTEND Internal Medicine Cardiovascular Disease
DX: I48.91 Unspecified atrial fibrillation (principal); I48.92 Unspecified atrial flutter; I44.7 Left bundle-branch block, unspecified; I10 Essential (primary) hypertension; I25.10 Atherosclerotic heart disease of native coronary artery without angina pectoris; E11.9 Type 2 diabetes mellitus without complications; E78.5 Hyperlipidemia, unspecified; G47.33 Obstructive sleep apnea (adult) (pediatric); F17.220 Nicotine dependence, chewing tobacco, uncomplicated; Z53.9 Procedure and treatment not carried out, unspecified reason; Z79.01 Long term (current) use of anticoagulants; Z79.02 Long term (current) use of antithrombotics/antiplatelets; Z79.84 Long term (current) use of oral hypoglycemic drugs; Z79.899 Other long term (current) drug therapy; Z95.1 Presence of aortocoronary bypass graft; Z95.5 Presence of coronary angioplasty implant and graft
CPT/HCPCS: 36415; 85025; 92960; J2704

== ENCOUNTER 2020-04-21 07:45 | Outpatient (CLI) | payer MEDICARE, OTHER ==
[2020-04-21 17:06] LABS: SARS-CoV-2 MS2 Positive; SARS-CoV-2 N Gene Negative; SARS-CoV-2 S Gene Negative; SARS-CoV-2 by NAA Not Detected (NotDetected); SARS-CoV-2 orf1ab Negative
== END 2020-04-21 07:46 | disposition home or self-care (01) ==
LOC: LABBT 07:45
PROVIDERS: ATTEND Internal Medicine
DX: K92.1 Melena (principal); Z20.828 Contact with and (suspected) exposure to other viral communicable diseases
CPT/HCPCS: 87635; U0003

== ENCOUNTER 2020-04-26 07:42 | Day surgery (SDC) | payer MEDICARE, OTHER ==
[2020-04-25 11:36] VITALS: BMI 31.4
--- NOTE | 2020-04-26 10:58 | OP ---
DATE OF PROCEDURE: 04/26/2020 PROCEDURES PERFORMED: Esophagogastroduodenoscopy with biopsy. INDICATION FOR PROCEDURE: Change in bowel habits, black colored stools concerning for melena while on anticoagulation. DESCRIPTION OF PROCEDURE: After the risks and benefits of the procedure were explained to the patient including risks of bleeding, infection, perforation, reactions to anesthesia, aspiration, and/or pain, informed consent was obtained. The patient was then taken to the endoscopy suite, where he was maneuvered into the left lateral decubitus position, followed by introduction of deep sedation via propofol on Anesthesia support. Once adequate sedation was achieved, the standard gastroscope was introduced into the mouth with intubation of the esophagus, stomach, and the proximal small intestines with the findings listed below. The patient tolerated the procedure well with no immediate perioperative complications. On conclusion of the procedure, all equipment was removed from the patient and he was transferred to Day Stay in satisfactory condition. EGD FINDINGS: Esophagus: Normal-appearing mucosa was seen in the proximal and mid esophagus; however, in the distal esophagus, an irregular Z-line was encountered in addition to 1 tongue of salmon-colored mucosa that extended proximally from the gastroesophageal junction. 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 Biopsies were then taken from this salmon-colored mucosa and placed in a specimen jar for further evaluation. Otherwise, there was no evidence of erosions, ulcerations, mass lesions, or active/recent bleeding. Stomach: Normal-appearing mucosa was seen in the gastric cardia, fundus, body, greater curvature, antrum, and incisura. There was no evidence of erosions, ulcerations, mass lesions, or active/recent bleeding. Duodenum: Normal-appearing mucosa was seen in the duodenal bulb; however, a 4 to 5 mm nodule was seen in the second portion of the duodenum almost immediately adjacent to the ampulla of Vater. It did not display any overlying erosions or ulcerations nor did display any evidence of active/recent bleeding. Multiple deep well biopsies were then taken from this nodule and placed in a specimen jar for further evaluation. Otherwise, the remainder of the duodenal mucosa was normal. There was no evidence of erosions, ulcerations, mass lesions, or active/recent bleeding. IMPRESSION: 1. 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 2. A 4 to 5 mm nodule seen in the second portion of the duodenum, status post biopsies. 3. There was no evidence of ulcerations or bleeding that might contribute to dark black colored stools or melenic type picture. RECOMMENDATIONS: 1. 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 This could also be continued with anticoagulation to further help provide mucosal integrity to the stomach. 2. Would resume anticoagulation in 24 to 48 hours given the biopsies taken today. 3. We will follow up on the biopsy results with repeat upper endoscopy depending on pathology report. 4. Would proceed with cardioversion as planned with Dr. Ryan. 5. Would have the patient follow up in the GI clinic as needed given resolution of his diarrhea and dark stools at the prior clinic visit and no evidence of bleeding seen during this examination today. Job ID: [id number]
[2020-04-26] MEDS ORDERED: Lidocaine 1% PF 5 ML VIAL ONE (12:25)
[2020-04-26] MEDS ORDERED: PROPOFOL 200 MG/20 ML VIAL ONE (12:25)
== END 2020-04-26 11:10 | disposition home or self-care (01) ==
LOC: SDC 07:42
PROVIDERS: ATTEND Internal Medicine
PROC: 0DB98ZX Excision of Duodenum, Via Natural or Artificial Opening Endoscopic, Diagnostic (ICD-10-PCS; principal; 2020-04-26)
PROC: 0DB58ZX Excision of Esophagus, Via Natural or Artificial Opening Endoscopic, Diagnostic (ICD-10-PCS; 2020-04-26)
DX: K31.89 Other diseases of stomach and duodenum (principal); K92.1 Melena; I48.91 Unspecified atrial fibrillation; I25.10 Atherosclerotic heart disease of native coronary artery without angina pectoris; I10 Essential (primary) hypertension; E11.9 Type 2 diabetes mellitus without complications; E78.00 Pure hypercholesterolemia, unspecified; Z79.01 Long term (current) use of anticoagulants; Z79.899 Other long term (current) drug therapy; Z87.891 Personal history of nicotine dependence; Z95.1 Presence of aortocoronary bypass graft; Z95.5 Presence of coronary angioplasty implant and graft
CPT/HCPCS: 88305; 88312; 88313; J2704

== ENCOUNTER 2020-05-05 06:25 | Outpatient (CLI) | payer MEDICARE, OTHER ==
[2020-05-05 09:41] LABS: #Basophils 0.1 10x3/uL (0.0-0.2); #Eosinphils 0.1 10x3/uL (0.0-0.5); #Monocytes 0.5 10x3/uL (0.0-1.1); #Neutrophils 7.1 10x3/uL (1.5-8.4); %Basophils 0.5 % (0.0-2.0); %Eosinophils 1.3 % (0.0-6.0); %Lymphocytes 19.4 % (18.0-47.0); %Monocytes 5.5 % (0.0-10.0); Hemoglobin 13.9 g/dL (14.0-18.0); Mean Corpuscular HGB CONC 33.1 G/DL (32.0-36.0); Mean Corpuscular Hemoglobin 30.3 PG (27.0-33.0); Mean Corpuscular Volume 91.5 fl (80.0-100.0); Mean Platelet Volume 12.2 fl (7.4-10.4); Platelet Count 191 10x3/uL (130-400); RBC Distribution Width 13.2 % (11.5-14.5); Red Blood Cell (RBC) Count 4.59 10x6/uL (4.40-5.80); White Blood Cell (WBC) Count 9.8 10x3/uL (4.5-11.0)
[2020-05-05 11:05] LABS: Anion Gap 16 mmol/L (10-20); BUN (Urea Nitrogen) 16 mg/dL (8.4-25.7); Calc. Creatinine Clearance 0 mL/min (70-130); Carbon Dioxide 24 mmol/L (23-31); Chloride 101 mmol/L (98-107); Estimated GFR-MDRD 70; Glucose 140 mg/dL (80-115); Potassium 4.1 mmol/L (3.5-5.1); Sodium 137 mmol/L (136-145)
[2020-05-06 15:00] LABS: SARS-CoV-2 MS2 Positive; SARS-CoV-2 N Gene Negative; SARS-CoV-2 S Gene Negative; SARS-CoV-2 by NAA Not Detected (NotDetected); SARS-CoV-2 orf1ab Negative
== END 2020-05-05 06:26 | disposition home or self-care (01) ==
LOC: LABBT 06:25
PROVIDERS: ATTEND Internal Medicine Cardiovascular Disease
DX: Z20.828 Contact with and (suspected) exposure to other viral communicable diseases (principal)
CPT/HCPCS: 80048; 85025; U0003; 87635

== ENCOUNTER 2020-05-10 09:54 | Day surgery (SDC) | payer MEDICARE, OTHER ==
[2020-05-09 14:40] VITALS: BMI 31.4
[2020-05-10] MEDS ORDERED: Lidocaine 1% PF 5 ML VIAL ONE (11:04)
[2020-05-10] MEDS ORDERED: PROPOFOL 200 MG/20 ML VIAL ONE (11:04)
[2020-05-10] MEDS ORDERED: Enoxaparin Sodium 40 MG/0.4 ML SYRINGE ONE (12:08)
[2020-05-10] MEDS ORDERED: Enoxaparin Sodium 30 MG/0.3 ML SYRINGE ONE (12:08)
--- NOTE | 2020-05-11 14:25 | OP ---
DATE OF PROCEDURE: 05/10/2020 PREPROCEDURE DIAGNOSIS: Atrial fibrillation. PROCEDURE PERFORMED: JENNIFER. Please see consent. SEDATION: Conscious sedation performed with anesthesia. FINDINGS: Left atrial appendage well visualized. There appears to be thrombus versus normal physiology, but there is spontaneous echo contrast in the left atrial appendage. I decided to not proceed with cardioversion. IMPRESSION: Questionable thrombus in left atrial appendage. Job ID: [id number]
== END 2020-05-10 13:32 | disposition home or self-care (01) ==
LOC: CCL 09:54
PROVIDERS: ATTEND Internal Medicine Cardiovascular Disease
PROC: B245ZZ4 Ultrasonography of Left Heart, Transesophageal (ICD-10-PCS; principal; 2020-05-10)
DX: I48.91 Unspecified atrial fibrillation (principal); I25.10 Atherosclerotic heart disease of native coronary artery without angina pectoris; I44.7 Left bundle-branch block, unspecified; E11.9 Type 2 diabetes mellitus without complications; E78.5 Hyperlipidemia, unspecified; I10 Essential (primary) hypertension; G47.33 Obstructive sleep apnea (adult) (pediatric); F17.220 Nicotine dependence, chewing tobacco, uncomplicated; Z79.01 Long term (current) use of anticoagulants; Z79.02 Long term (current) use of antithrombotics/antiplatelets; Z79.84 Long term (current) use of oral hypoglycemic drugs; Z95.1 Presence of aortocoronary bypass graft; Z95.5 Presence of coronary angioplasty implant and graft
CPT/HCPCS: 92960; 93312; J1650; J2704

== ENCOUNTER 2020-06-08 06:49 | Outpatient (CLI) | payer MEDICARE, OTHER ==
[2020-06-08 14:12] LABS: #Basophils 0.1 10x3/uL (0.0-0.2); #Eosinphils 0.2 10x3/uL (0.0-0.5); #Monocytes 0.6 10x3/uL (0.0-1.1); #Neutrophils 6.3 10x3/uL (1.5-8.4); %Basophils 0.7 % (0.0-2.0); %Eosinophils 1.5 % (0.0-6.0); %Lymphocytes 27.7 % (18.0-47.0); %Monocytes 6.3 % (0.0-10.0); %Neutrophils 63.4 % (40.0-75.0); Hemoglobin 14.2 g/dL (14.0-18.0); Mean Corpuscular HGB CONC 33.2 G/DL (32.0-36.0); Mean Corpuscular Hemoglobin 30.1 PG (27.0-33.0); Mean Corpuscular Volume 90.7 fl (80.0-100.0); Mean Platelet Volume 12.5 fl (7.4-10.4); Platelet Count 177 10x3/uL (130-400); RBC Distribution Width 13.2 % (11.5-14.5); Red Blood Cell (RBC) Count 4.72 10x6/uL (4.40-5.80); White Blood Cell (WBC) Count 9.9 10x3/uL (4.5-11.0)
[2020-06-08 14:23] LABS: Anion Gap 14 mmol/L (10-20); BUN (Urea Nitrogen) 24 mg/dL (8.4-25.7); Calc. Creatinine Clearance 0 mL/min (70-130); Calcium 9.6 mg/dL (7.8-10.44); Carbon Dioxide 27 mmol/L (23-31); Chloride 101 mmol/L (98-107); Glucose 113 mg/dL (80-115); Potassium 3.7 mmol/L (3.5-5.1); Sodium 138 mmol/L (136-145)
[2020-06-08 17:24] LABS: INR-International Normal Ratio 1.2; Prothrombin Time 12.8 sec (9.5-12.1)
[2020-06-08 20:54] LABS: SARS-CoV-2 MS2 Positive; SARS-CoV-2 N Gene Negative; SARS-CoV-2 S Gene Negative; SARS-CoV-2 by NAA Not Detected (NotDetected); SARS-CoV-2 orf1ab Negative
== END 2020-06-08 06:50 | disposition home or self-care (01) ==
LOC: LABBT 06:49
PROVIDERS: ATTEND Internal Medicine Cardiovascular Disease
DX: Z01.812 Encounter for preprocedural laboratory examination (principal); Z20.828 Contact with and (suspected) exposure to other viral communicable diseases
CPT/HCPCS: 80048; 85025; 85610; 85730; U0003; 87635

== ENCOUNTER → 2020-06-13 | Day surgery (SDC) | payer MEDICARE, OTHER ==
[2020-06-10 10:48] VITALS: BMI 31.4
[~2020-06-13] MED LIST: PROPOFOL 20 ML ONE
--- NOTE | 2020-06-13 14:01 | OP ---
DATE OF PROCEDURE: 06/13/2020 PREPROCEDURE DIAGNOSIS: Atrial fibrillation. POSTPROCEDURE DIAGNOSIS: Atrial fibrillation. PROCEDURES PERFORMED: JENNIFER. DESCRIPTION OF PROCEDURE: The patient was consented for the procedure. Discussed the procedure in full detail with Conrado Phuc. Conscious sedation performed with propofol. The probe passed easily into the esophagus. FINDINGS: Left atrial appendage was well visualized. No obvious thrombus present in left atrial appendage. Velocity approach 30 cm/second. IMPRESSION: No obvious thrombus within the left atrial appendage. Job ID: [id number]
--- NOTE | 2020-06-13 14:02 | OP ---
DATE OF PROCEDURE: 06/13/2020 PREPROCEDURE DIAGNOSIS: Atrial fibrillation. POSTPROCEDURE DIAGNOSIS: Sinus rhythm. PROCEDURE PERFORMED: Synchronized cardioversion. The patient was consented for the procedure. Conscious sedation was performed with propofol. JENNIFER performed prior to cardioversion. JENNIFER did not suggest thrombus. The patient underwent successful synchronized cardioversion x1 at 150 joules. IMPRESSION: Successful synchronized cardioversion. Job ID: [id number]
== END ==
LOC: CCL 10:03
PROVIDERS: ATTEND Internal Medicine Cardiovascular Disease
PROC: 5A2204Z Restoration of Cardiac Rhythm, Single (ICD-10-PCS; principal; 2020-06-13)
PROC: B245ZZ4 Ultrasonography of Left Heart, Transesophageal (ICD-10-PCS; 2020-06-13)
DX: I48.19 Other persistent atrial fibrillation (principal); I25.10 Atherosclerotic heart disease of native coronary artery without angina pectoris; I10 Essential (primary) hypertension; I44.7 Left bundle-branch block, unspecified; E11.9 Type 2 diabetes mellitus without complications; E78.5 Hyperlipidemia, unspecified; G47.33 Obstructive sleep apnea (adult) (pediatric); Z79.01 Long term (current) use of anticoagulants; Z79.02 Long term (current) use of antithrombotics/antiplatelets; Z79.84 Long term (current) use of oral hypoglycemic drugs; Z79.899 Other long term (current) drug therapy; Z95.1 Presence of aortocoronary bypass graft; Z95.5 Presence of coronary angioplasty implant and graft
CPT/HCPCS: 92960; 93005; 93010; 93312; J2704

== ENCOUNTER 2025-02-17 10:40 | Outpatient (CLI) | payer OTHER | END 2025-02-17 10:41 | disposition home or self-care (01) | LOC: RAD 10:40 | PROVIDERS: ATTEND Physician Assistant | DX: I25.10 Atherosclerotic heart disease of native coronary artery without angina pectoris (principal) | CPT/HCPCS: 36415; 71046; 84443 ==